=== PATIENT | female | born 1950 | race Caucasian/White ===

== ENCOUNTER 2018-05-06 16:01 | Outpatient (CLI) | payer MEDICARE ==
--- NOTE | 2018-05-06 19:37 | RAD ---
LUMBAR SPINE FOUR VIEWS INCLUDING FLEXION AND EXTENSION VIEWS: 05/06/2018 HISTORY: Lumbar spondylosis. The patient complains of numbness in the bilateral feet with low back pain. His tory of prior low back surgery. COMPARISON: None available. FINDINGS: Vascular calcifications are seen in the abdominal aorta. The AP dimensions of the calcified abdomina l aorta are increased, with evidence of aneurysmal dilatation of the abdominal aorta, measuring 3.6 c m. Post surgical changes of the lumbar spine are noted with bipedicular screws and posterior rods transf ixing the L2-L3, L3-L4, L4-L5, and L5-S1 levels. No hardware complication is seen. Laminectomy defe cts are seen extending from the L2-L3 level to the L5-S1 level. Bony lateral masses are seen, relate d to the fusion. No hardware complication is seen. The vertebral body heights are within normal sweeney its. There is trace anterolisthesis of L2 on L3. No fracture is identified. There are endplate deg enerative changes and loss of intervertebral disk height at the L1-L2 level. There is mild right con vex curvature of the lumbar spine. IMPRESSION: 1. Infrarenal abdominal aortic aneurysm. Further evaluation with abdominal ultrasound is recommende d. 2. Postsurgical changes of the lumbar spine, related to posterior fusion from the level of the L2 ve rtebral body to the S1 vertebral body. No hardware complication is seen. 3. Degenerative changes at the L1-L2 level, with loss of intervertebral disk height and endplate deg enerative changes noted. CODE T POS: LIZ
--- NOTE | 2018-05-06 19:55 | RAD ---
FIVE VIEWS CERVICAL SPINE INCLUDING FLEXION AND EXTENSION VIEWS: 05/06/18 HISTORY: Cervical spondylolisthesis. Patient complains of numbness and tingling of bilateral hands and fingers . FINDINGS: C1 to C7 is seen on the lateral projection. Cervicothoracic junction is obscured due to overlying str uctures, but there is questionable trace anterolisthesis of C7 on T1. There is trace anterolisthesis of C3 on C4 measuring 3 to 4 mm on flexion and less than 2 mm on extension and measures approximately 2.5 mm on neutral positioning. There are end plate degenerative changes at the C5-6 level with loss of intervertebral disc height an d posterior osteophyte formation present at this level. No obvious fracture is seen on this exam. Pre vertebral soft tissues are within normal limits. Multilevel facet degenerative changes are noted. Vas cular calcifications overlie the carotid artery bilaterally, greater on the right. IMPRESSION: 1. Anterolisthesis of C3 on C4 with mild abnormal transitional motion. 2. Questionable trace anterolisthesis of C7 on T1, but this level is mostly obscured, and this i s difficult to accurately develop based on this exam. 3. Multilevel facet degenerative changes in the cervical spine. POS: LIZ
== END 2018-05-06 16:02 | disposition home or self-care (01) ==
LOC: TBSIIMAG 16:01
PROVIDERS: ATTEND Neurological Surgery
DX: M47.26 Other spondylosis with radiculopathy, lumbar region (principal); M47.22 Other spondylosis with radiculopathy, cervical region; M43.12 Spondylolisthesis, cervical region; I71.4 Abdominal aortic aneurysm, without rupture; M51.16 Intervertebral disc disorders with radiculopathy, lumbar region; Z98.1 Arthrodesis status
CPT/HCPCS: 72040; 72110

== ENCOUNTER 2018-07-23 05:58 | Inpatient (IN) | payer MEDICARE ==
[2018-07-23] MEDS ORDERED: Fentanyl 100 MCG/2 ML VIAL ONE ×2 (07:05→10:31)
[2018-07-23] MEDS ORDERED: Midazolam HCl 2 mg/2 ml Vial ONE (07:05)
[2018-07-23] MEDS ORDERED: Heparin 10,000 UNITS/1 ML VIAL ONE (08:30)
[2018-07-23] MEDS ORDERED: Protamine Sulfate 50 MG/5 ML VIAL ONE (08:31)
[2018-07-23] MEDS ORDERED: Acetaminophen/Codeine 30-300mg Tablet PO PRN ×2 (08:51)
[2018-07-23] MEDS ORDERED: Nitroglycerin 0.4 MG TAB (25 Tab Bottle) SL PRN (08:51)
[2018-07-23] MEDS ORDERED: Sodium Chloride 0.9% 200 ML IV PRN (08:51)
[2018-07-23] MEDS ORDERED: Aspirin 81 mg Enteric Coated Tablet PO SCH (09:00)
[2018-07-23] MEDS ORDERED: diphenhydrAMINE 25 MG CAP PO PRN (09:00)
[2018-07-23] MEDS ORDERED: Ibuprofen 800 MG TAB PO PRN (09:01)
[2018-07-23] MEDS ORDERED: traZODone HCl 50 MG TAB PO PRN (09:04)
[2018-07-23] MEDS ORDERED: Iopamidol 370 76% 100 ML VIAL ONE (09:13)
[2018-07-23] MEDS ORDERED: Iopamidol 370 76% 50 ML VIAL FS ONE (09:13)
[2018-07-23] MEDS: Sodium Chloride 0.9% 1,000 ML IV SCH ×2 (13:03→17:58)
[2018-07-23] MEDS: HYDROcodone/Acetaminophen 10/325 mg Tablet PO PRN ×2 (13:03→20:10)
[2018-07-23 13:36] LABS: PTT 25.4 SEC (22.9-36.1); Prothrombin Time 13.2 SEC (12.0-14.7)
--- NOTE | 2018-07-23 13:47 | CON ---
DATE OF CONSULTATION: 07/23/2018 PRIMARY CARE PHYSICIAN: Dr. Oscar Devi. CHIEF COMPLAINT: Abnormal stress test. HISTORY OF PRESENT ILLNESS: The patient is a 68-year-old woman with a known history of coronary artery disease having had myocardial infarctions in 1997 and in 1998. She has done well since then with no chest pain or indigestion type symptoms similar to those of her heart attacks. She has not had any dyspnea on exertion or decreasing exercise tolerance, but she is having some upper extremity radicular symptoms and is going to undergo neck surgery. She went to Dr. Mcgovern for cardiac evaluation prior to undergoing surgery and a stress test was abnormal with both fixed and reversible defects along the inferior wall. Cardiac catheterization today demonstrated a left dominant system. A collateral from the nondominant right fills, what appears to represent a PDA with competitive flow in it distally. No obvious problems in the LAD, but a very high-grade lesion in the groove circumflex just beyond the large OM and involving the origin of that OM. LVEF is good by my estimation around 70%, but LVEDP was 24. PAST MEDICAL HISTORY: Significant for coronary artery disease. She has had a known occlusion of her PDA and extensive stenting of mid to distal LAD. MEDICATIONS: Her home medications are; 1. Adult aspirin a day. 2. Zocor 40 mg in the evening. 3. Lopressor 50 mg b.i.d. 4. Lisinopril 10/hydrochlorothiazide 12.5 mg once a day. 5. Protonix 40 mg a day. 6. Zoloft 200 mg a day. 7. Trazodone 50 mg at bedtime. 8. Flexeril 10 mg p.r.n. 9. Motrin 800 mg b.i.d. p.r.n. 10. Benadryl 25 mg at bedtime p.r.n. 11. [place] 10 one tablet every 12 hours p.r.n. ALLERGIES: SHE DENIES ANY MEDICAL ALLERGIES, BUT DESCRIBES AN INTOLERANCE TO CRESTOR. SOCIAL HISTORY: She is a long-term smoker, who has recently cut back to mostly using E-cigarettes, but occasionally smoking conventional cigarettes. FAMILY HISTORY: Significant for both of her parents having hypertension and the cause of unknown. REVIEW OF SYSTEMS: Positive for pain and numbness in both hands. It is negative for any eye, speech, facial, or extremity symptoms suggestive of TIAs. Negative for any shortness of breath. Negative for any chest pain. PHYSICAL EXAMINATION: GENERAL: She is 5 feet 2 inches and weighs 223 pounds by the hospital weight, she was [address] Mcgovern's office. Heart rate 67, blood pressure 123/75, room air O2 saturations are 98%, and temperature is 98.6. HEENT: She has no xanthelasma. NECK: No JVD. No carotid bruits. CHEST: Clear to auscultation. HEART: She has regular rate and rhythm. ABDOMEN: Obese, soft, and nontender. She has palpable radial and dorsalis pedis pulses bilaterally. She has no clubbing, cyanosis, or edema. She has no obvious varicosities. NEUROLOGIC: Grossly nonfocal. LABORATORY DATA: Laboratory exam shows a white count of 9.1, hemoglobin 13.1, hematocrit 39.2, and platelets 247,000. Electrolytes were normal. Glucose 93, BUN 28, and creatinine 1.30. LFTs were normal. Calcium 9.9, protein 7.7, albumin 4.1, triglycerides 163, cholesterol 183, LDL 110, and HDL 40. Her most recent chest x-ray in our system is about 4 years old. At that time, one could see calcifications and what appeared to represent breast implants. No obvious aortic knob calcification. Normal size heart and clear lung miramontes. Her cardiac catheterization is as above. Aortic pressure on pullback was 122/68 with a mean of 87. LV pressure was 137/22 with an EDP of 24. IMPRESSION AND PLAN: I discussed with the patient, issues related to basically 2-vessel disease and some vagaries associated with revascularization in anticipation of other procedures. Certainly, percutaneous intervention on this lesion would be difficult and could lead to catastrophic problems. If there are any complications related to it, we will plan on coronary artery bypass grafting and/or circumflex system. Job ID: [id number]
--- NOTE | 2018-07-23 14:58 | HP ---
PRIMARY CARE PROVIDER: Dr. Milo Nettles. HISTORY OF PRESENT ILLNESS: The patient having a routine cardiac cath for preop clearance. She had a history of coronary artery disease, was found to have critical lesions and is being scheduled for coronary artery bypass graft tomorrow. She had no chest pain. No dyspnea on exertion prior to this. PAST MEDICAL HISTORY: Pertinent for coronary artery disease with PCI x4, she had two in 1998 and two in 2008. She had an GA prior to the 1998. She has hypertension, elevated cholesterol, and depression. HOME MEDICATIONS: 1. Trazodone 50 mg a day. 2. Zocor 40 mg a day. 3. Zoloft 200 mg a day. 4. Protonix 40 mg a day. 5. Metoprolol 50 mg twice a day. 6. Lisinopril-hydrochlorothiazide 10-12.5 a day. 7. Ibuprofen 800 mg p.o. t.i.d. p.r.n. 8. Hydrocodone 10/325 one p.o. q.4 hours p.r.n. 9. Flexeril 10 mg at bedtime. 10. Aspirin 81 mg a day. 11. Benadryl 25 mg h.s. p.r.n. ALLERGIES: NONE. FAMILY HISTORY: Father is . Mother had hypertension. She has two sibs with hypertension. Father is with coronary artery disease. SOCIAL HISTORY: . Full code status. Daughter, Chasity Waters is next of kin. She is nontobacco smoking. She drinks an occasional alcoholic beverage. REVIEW OF SYSTEMS: GENERAL: No headaches, dizziness, fainting. EYES: No double vision, blurred vision, or flashing light. EAR, NOSE, AND THROAT: No ear pain or drainage. No nasal bleeding. No trouble swallowing. CARDIAC: No chest pain, orthopnea, or paroxysmal nocturnal dyspnea. RESPIRATION: No cough, wheezing, or asthma. GASTROINTESTINAL: She has problems with constipation secondary to pain medicines. She has no nausea, vomiting, abdominal pain, or diarrhea. GENITOURINARY: No hematuria or dysuria. MUSCULOSKELETAL: No swelling in her legs. No pain in her muscle. She does have low back pain radiating into her right hip and to her right leg. NEUROLOGIC: She has been told her neck is unstable and she needs a stabilization procedure, which is the reason for the clearance was for C-spine surgery. PSYCHIATRIC: She has history of mild depression on medications, doing well. SKIN: No bruising, bleeding, or rash. HEME/LYMPH: No tender or swollen lymph nodes in axilla, inguinal, or cervical area. PHYSICAL EXAMINATION: GENERAL: She is alert, pleasant, cooperative lady in no distress at this time. VITAL SIGNS: Temperature 98.6, pulse 67, respirations 16, room air sat 98, blood pressure 123/75. HEAD, EYES, EARS, NOSE, AND THROAT: Reveal pupils are equal, round, and reactive to light. Extraocular movements are intact. Tympanic membranes clear. Nose clear. Oral mucous membranes are wet. Dental hygiene is good. NECK: No jugular venous distention, adenopathy, or thyromegaly. CHEST: Clear to auscultation and percussion. HEART: Had a regular rate and rhythm. First and second heart sounds are clear. There are no murmurs or gallops. ABDOMEN: Soft. Bowel sounds are normal. There is no hepatosplenomegaly. No mass. No rebound. EXTREMITIES: Reveal no cyanosis, clubbing, or edema. PULSES: Carotid, radial, femoral, and dorsalis pedis pulses are intact. SKIN: Warm and dry without bruises or rash. HEME/LYMPH: Reveals no tender or swollen lymph nodes in the axilla, inguinal, or cervical area. NEUROLOGIC: Cranial nerves 2 through 12 are intact. Moves all extremities. DIAGNOSTIC DATA: Cardiac cath report 95% stenosis of proximal circ, 95% stenosis first obtuse marginal, 80% stenosis in distal circ, 50% stenosis in mid circ. EKG; sinus bradycardia, nonspecific ST-T abnormality, reviewed by me. LABORATORY DATA: The only laboratory available 07/18; CBC is normal. 07/18; comprehensive metabolic profile is normal except for a creatinine of 1.3 and a BUN of 28. ADMITTING DIAGNOSES: 1. Coronary artery disease with critical lesions requiring coronary artery bypass graft. 2. Hypertension. 3. Dyslipidemia. 4. Depression. PLAN: Agree with current management. Continue current medications. We will follow with you. Job ID: [id number]
--- NOTE | 2018-07-23 15:04 | RAD ---
PORTABLE CHEST 1 VIEW: Date: 07/23/18 Time: 1441 hours HISTORY: Preoperative evaluation for open heart surgery. FINDINGS: Comparison made with exam of 04/11/14. The heart size is normal. The lungs are expanded without focal areas of consolidation, pneumothorax, latrell pulmonary edema, or pleural effusions. Bilateral calcified breast prostheses are present. IMPRESSION: No radiographic evidence of acute cardiopulmonary process. POS: JAEH
[2018-07-23] MEDS: Metoprolol Tartrate 50 MG TAB PO SCH (20:10)
[2018-07-23] MEDS ORDERED: Pantoprazole 40 MG GRANULES PACKET PO SCH (21:00)
[2018-07-23] MEDS ORDERED: Cyclobenzaprine 10 MG TAB PO SCH (21:00)
[2018-07-23] MEDS ORDERED: Atorvastatin Calcium 40 MG TAB PO SCH (21:00)
[2018-07-24] MEDS: HYDROcodone/Acetaminophen 10/325 mg Tablet PO PRN (00:16)
[2018-07-24] MEDS: Sodium Chloride 0.9% 1,000 ML IV SCH ×2 (01:16→17:16)
[2018-07-24] MEDS: Metoprolol Tartrate 50 MG TAB PO SCH (07:13)
[2018-07-24] MEDS ORDERED: Lisinopril/Hydrochlorothiazide 10 mg/12.5 mg Tablet PO SCH (09:00)
[2018-07-24] MEDS ORDERED: Midazolam HCl 5 mg/5 ml Vial ONE (10:12)
[2018-07-24] MEDS ORDERED: Fentanyl 250 MCG/5 ML VIAL ONE (10:12)
[2018-07-24] MEDS ORDERED: Vecuronium 10 MG VIAL ONE ×2 (10:13→10:14)
[2018-07-24] MEDS ORDERED: Dexmedetomidine 200 MCG/2 ML VIAL ONE (10:13)
[2018-07-24] MEDS ORDERED: Potassium Chloride 60 MEQ/30 ML VIAL ONE (10:14)
[2018-07-24] MEDS ORDERED: Sodium Bicarb 50 MEQ/50 ML VIAL ONE (10:14)
[2018-07-24] MEDS ORDERED: Nitroglycerin 50 MG/250 ML BOT ONE (10:14)
[2018-07-24] MEDS ORDERED: Lidocaine 2% PF 100 mg/5 ml Syringe ONE (10:14)
[2018-07-24] MEDS ORDERED: PROPOFOL 200 MG/20 ML VIAL ONE (10:14)
[2018-07-24] MEDS ORDERED: Ondansetron PF 4 MG/2 ML Vial ONE (10:14)
[2018-07-24] MEDS ORDERED: Papaverine 60 MG/2 ML VIAL ONE (10:14)
[2018-07-24] MEDS ORDERED: Protamine Sulfate 250 MG/25 ML VIAL ONE (10:14)
[2018-07-24] MEDS ORDERED: Glycopyrrolate 0.2 MG/ML 5 ML SYRINGE ONE (10:14)
[2018-07-24] MEDS ORDERED: Heparin 30,000 units/30 ml VIAL ONE (10:14)
[2018-07-24] MEDS ORDERED: Thrombin 5000 UNITS/5 ML VIAL ONE (10:14)
[2018-07-24] MEDS ORDERED: Calcium Chloride 1 GM/10 ML Abboject SYRINGE ONE (10:14)
[2018-07-24] MEDS ORDERED: Cardioplegic Soln 1,000 ML BAG ONE (10:14)
[2018-07-24] MEDS ORDERED: Mannitol 12.5 GM/50 ML ONE (10:14)
[2018-07-24] MEDS ORDERED: Aminocaproic Acid 5 GM/20 ML VIAL ONE (10:14)
[2018-07-24] MEDS ORDERED: Magnesium 5 GM/10 ML VIAL ONE (10:14)
[2018-07-24] MEDS ORDERED: Albumin 5% 500 ML ONE (10:37)
[2018-07-24] MEDS ORDERED: Midazolam HCl 2 mg/2 ml Vial ONE (10:41)
[2018-07-24] MEDS ORDERED: Heparin 10,000 UNITS/1 ML VIAL 30,000 UNITS in Sodium Chloride 0.9% 1,000 ML FS SCH (11:00)
[2018-07-24] MEDS ORDERED: Communication Order-Pharmacy FS ONE (12:19)
[2018-07-24] MEDS ORDERED: Hetastarch 6% 500 ML 500 ML IVPB PRN (15:13)
[2018-07-24] MEDS ORDERED: Nitroglycerin 50 MG/250 ML BOT 250 ML IVPB PRN (15:13)
[2018-07-24] MEDS ORDERED: Mag-Al 1200 mg/1200 mg/30 ML UDCUP PO PRN (15:13)
[2018-07-24] MEDS ORDERED: Acetaminophen 325 MG TAB PO PRN (15:13)
[2018-07-24] MEDS ORDERED: Ondansetron PF 4 MG/2 ML Vial IVP PRN (15:13)
[2018-07-24] MEDS ORDERED: Fentanyl 100 MCG/2 ML VIAL SLOW IVP PRN (15:13)
[2018-07-24] MEDS ORDERED: Post-Op Insulin Drip Protocol IVPB ONE (15:13)
[2018-07-24] MEDS ORDERED: Guaifenesin DM 100-10/5 ML UDCUP PO PRN (15:13)
[2018-07-24] MEDS ORDERED: diphenhydrAMINE 25 MG CAP PO PRN (15:13)
[2018-07-24] MEDS ORDERED: Bisacodyl 5 MG TAB PO PRN (15:13)
[2018-07-24] MEDS ORDERED: Promethazine HCl 25 MG/ML VIAL IM PRN (15:13)
[2018-07-24] MEDS ORDERED: HYDROcodone/Acetaminophen 5/325 mg Tablet PO PRN (15:13)
[2018-07-24] MEDS ORDERED: hydrALAZINE 20 MG/ML VIAL SLOW IVP PRN (15:13)
[2018-07-24] MEDS ORDERED: Bisacodyl 10 MG SUPP PR PRN (15:13)
[2018-07-24] MEDS ORDERED: HUMULIN R 100 UNITS in Sodium Chloride 0.9% 100 ML IVPB SCH (16:06)
[2018-07-24] MEDS ORDERED: Dextrose 5% in Water 1,000 ML IV PRN (16:06)
[2018-07-24] MEDS ORDERED: Dextrose 50% Abboject 50 ML SYRINGE SLOW IVP PRN (16:06)
[2018-07-24 16:52] LABS: Actual Bicarbonate (HCO3a) 22.2 mEq/L (22-28); Base Excess (BEa) -5.5 mEq/L (-2.0 to +3.0); CO2 Tension 53.7 mmHg (35.0-45.0); Calcium, Ionized 1.23 mmol/L (1.12-1.30); Carboxyhemoglobin (COHb) 0.9 gm% (0.0-3.0); Hemoglobin (Hb) 11.6 g/dL (12.0-16.0); Potassium - ABG Lab 4.38 mmol/L (3.70-5.30)
--- NOTE | 2018-07-24 16:52 | RAD ---
Exam: Chest one view: HISTORY: Postop open heart COMPARISON: 07/23/2018 FINDINGS: Recent postop midline sternotomy with endotracheal tube, right central line, and chest tubes in place . Minimal bilateral vascular congestion and patchy parenchymal changes in the left base probably some subsegmental atelectasis. No pneumothorax. IMPRESSION: Postop recent coronary bypass changes. Continued short-term follow-up.
[2018-07-24 16:54] LABS: Mean Corpuscular HGB CONC 31.6 g/dL (32.0-36.0); Mean Corpuscular Hemoglobin 30.5 pg (27.0-31.0); Mean Corpuscular Volume 96.7 fL (78.0-98.0); Mean Platelet Volume 7.5 fL (7.4-10.4); Platelet Count 185 thou/uL (130-400); RBC Distribution Width 13.5 % (11.5-14.5); Red Blood Cell (RBC) Count 3.61 mill/uL (4.20-5.40)
[2018-07-24 16:59] LABS: INR-International Normal Ratio 1.2; PTT 24.9 SEC (22.9-36.1); Prothrombin Time 15.7 SEC (12.0-14.7)
[2018-07-24 17:09] LABS: Puncture Site ALINE; pH, Arterial 7.24 (7.35-7.45)
[2018-07-24 17:10] LABS: ALV-art Gradient 183.675 (0-20)
[2018-07-24 17:11] LABS: Potassium 4.2 mmol/L (3.5-5.1)
[2018-07-24] MEDS: Ketorolac Tromethamine 30 MG/ML VIAL IVP SCH ×2 (17:14→23:34)
[2018-07-24 17:15] LABS: Anion Gap 12 mmol/L (10-20); BUN (Urea Nitrogen) 14 mg/dL (9.8-20.1); Band 12 % (5-11); Calc. Creatinine Clearance 104 mL/min (70-130); Calcium 8.4 mg/dL (7.8-10.44); Carbon Dioxide 21 mmol/L (23-31); Chloride 111 mmol/L (98-107); Eosinophils 2 % (0-10); Estimated GFR-MDRD 67; Glucose 145 mg/dL (80-115); Lymphocytes 9 % (21-51); MDiff Complete? YES; Metamyelocyte 1 % (0-0); Monocytes 2 % (0-10); Neutrophil 73 % (42-75); Platelet Morphology Comment Appears Adequate; Potassium 4.3 mmol/L (3.5-5.1); RBC Morphology Normal; Reactive Lymphocytes 1 % (0-10); Sodium 140 mmol/L (136-145)
[2018-07-24] MEDS: Norepinephrine 8 MG/0.9% NS 250 ML IVPB PRN (17:17)
[2018-07-24] MEDS: Insulin Regular 300 UNITS/3 ML VIAL SC PRN ×2 (17:20→20:18)
[2018-07-24 17:51] LABS: Actual Bicarbonate (HCO3a) 20.6 mEq/L (22-28); Base Excess (BEa) -4.2 mEq/L (-2.0 to +3.0); CO2 Tension 36.6 mmHg (35.0-45.0); Calcium, Ionized 1.15 mmol/L (1.12-1.30); Carboxyhemoglobin (COHb) 0.6 gm% (0.0-3.0); Hemoglobin (Hb) 11.2 g/dL (12.0-16.0); O2 Tension (PaO2) 182.3 mmHg (> 80.0); Potassium - ABG Lab 4.13 mmol/L (3.70-5.30); pH, Arterial 7.37 (7.35-7.45)
[2018-07-24 18:00] LABS: Puncture Site ALINE
[2018-07-24] MEDS: Fentanyl 100 MCG/2 ML VIAL SLOW IVP PRN ×3 (18:44→23:33)
[2018-07-24 20:15] LABS: Actual Bicarbonate (HCO3a) 22.1 mEq/L (22-28); Base Excess (BEa) -3.6 mEq/L (-2.0 to +3.0); CO2 Tension 42.3 mmHg (35.0-45.0); Calcium, Ionized 1.16 mmol/L (1.12-1.30); Carboxyhemoglobin (COHb) 0.9 gm% (0.0-3.0); Hemoglobin (Hb) 10.4 g/dL (12.0-16.0); O2 Tension (PaO2) 107.4 mmHg (> 80.0); Potassium - ABG Lab 4.15 mmol/L (3.70-5.30); pH, Arterial 7.34 (7.35-7.45)
[2018-07-24 20:17] LABS: ALV-art Gradient 89.275 (0-20); Puncture Site ALINE
[2018-07-24] MEDS ORDERED: Cyclobenzaprine 10 MG TAB PO SCH (21:00)
[2018-07-24] MEDS: traZODone HCl 50 MG TAB PO SCH (21:54)
--- NOTE | 2018-07-24 21:57 | OP ---
DATE OF PROCEDURE: 07/24/2018 PROCEDURES PERFORMED: Coronary artery bypass grafting x2 with reverse greater saphenous vein graft from the aorta to the first obtuse marginal and free right internal mammary artery from the aorta to the second obtuse marginal. PREOPERATIVE DIAGNOSIS: Coronary artery disease. POSTOPERATIVE DIAGNOSIS: Coronary artery disease. PLATE SHEAR OPERATOR: Dr. Tomás Leung. ANESTHESIA: General endotracheal anesthesia. INDICATIONS: The patient is a 68-year-old woman with cervical spine disease, needing to undergo a surgical procedure for it. She has known coronary artery disease and screening. Stress testing was abnormal. Cardiac catheterization demonstrated minimal luminal irregularity associated with the previously stented LAD, but a complex lesion in the circumflex proper involving the first obtuse marginal. The lesion in the circumflex proper was a subtotal lesion. The circumflex was a dominant system. She is now taken to the operating room for surgical revascularization. FINDINGS: Pump time 76 minutes. Cross-clamp time 20 minutes. Good quality GILES and saphenous vein. The OM1 was about 2 or perhaps 2.5 mm vessel. The OM2 was 1.5 to 2 mm. The circumflex PDA though long was only about a 1 mm vessel or smaller and was not grafted. The pericardium was closed. NARRATIVE REPORT: After informed consent was obtained, the patient was taken to the operating room, placed in supine position on the operating table. After the induction of general endotracheal anesthesia, utilizing a GlideScope to avoid extension of the neck. The patient's greater saphenous vein in her left lower extremity was ultrasonographically mapped. Her right upper chest was then prepped and draped in sterile fashion and she was placed in Trendelenburg. A triple-lumen central line kit was used to place a right subclavian central line by the Seldinger technique. All 3 ports easily aspirated and flushed. The line was secured. The patient's torso, groins, and lower extremities were prepped and draped in sterile fashion avoiding the use of the shoulder roll. Saphenous vein was harvested from the proximal left thigh and was prepared for use as a graft. The harvest site was closed in layers of subcutaneous and subcuticular Vicryl. A median sternotomy was performed. The right internal mammary artery was harvested as a skeletonized free graft from the level of the xiphoid to where it dove deep to the innominate vein through an extrapleural exposure at the proximal dissection, however, exposure led to a wide violation of the right pleura. After ligating and dividing the mammary proximally and distally at either end, a 36-[place]ian chest tube was placed into the right pleural space and the pleural rent was repaired with 3-0 Vicryl. The distal end of the mammary was cannulated with a small bore needle and the mammary was distended with papaverine solution to relieve spasm and to evaluate for adequacy of control side branches. The patient was heparinized. The mammary bed was inspected for hemostasis. The pericardium was opened and marsupialized. The aorta was palpated and was soft. Some adhesions within the pericardium to the ascending aorta were lysed sharply. A double concentric pursestring of 2-0 Ethibond was placed in the ascending aorta just within the pericardial reflection and a single pursestring was placed in the right atrial appendage. Aortic and venous cannulae were inserted and secured by the pursestrings. Cardiopulmonary bypass was instituted and the patient was systemically cooled. The plane between the aorta and the pulmonary artery was developed. An aortic cross-clamp was applied and cardioplegia was administered through an aortic root needle. When arrest have been achieved, attention was turned to the OM1. It was opened with a [place] blade and Shashank scissors. Reverse greater saphenous vein was anastomosed to it with running 6-0 Prolene suture and the anastomosis was tested by flushing cold cardioplegia down the graft. Attention was then turned to the 2nd obtuse marginal. It was opened in a similar fashion. The right mammary was reversed and anastomosed there end-to-side with running 7-0 Prolene and tested by flushing cold cardioplegia down it. The aortic cross-clamp was replaced with the partial occluding clamp and a generous aortotomy was made in the ascending aorta with a scalpel and punch incorporating the root needle site. The OM1 graft was generously spatulated after trimming it to length and it was then anastomosed to that aortotomy end-to-side with running 6-0 Prolene suture. Venotomy was made in the conn of that proximal anastomosis using 11 blade scalpel and Shashank scissors. The right mammary was trimmed to length and generously spatulated and anastomosed onto the conn of the OM1 vein graft proximal with running 7-0 Prolene. The mammary was allowed to back bleed to flush it of air and with it occluded at the anastomosis, the partial occluding clamp was removed. The vein graft was de-aired and the bulldog removed from it. The anastomoses were inspected for hemostasis. The posterior pericardial drain was brought out through a separate incision and secured with suture. Right atrial and right ventricular temporary epicardial pacing wires were placed with the use of low dose Levophed and pacing. The patient was from cardiopulmonary bypass without difficulty. The aortic and venous cannulae were removed and the pursestring secured. Protamine was administered. When hemostasis was adequate, an anterior mediastinal drain was placed. The pericardium was easily closed over it with running Vicryl. Cut surfaces of the sternum were treated with vancomycin paste and platelet rich GPS. The sternum was then reapproximated with #7 stainless steel wires. The fascia was closed over the wires with heavy Vicryl after irrigating the soft tissues and applying platelet poor GPS. Subcutaneous tissue was reapproximated with 2-0 Vicryl. The skin was closed with Vicryl subcuticular suture. The wounds were dressed. The patient was then taken to the intensive care unit in stable condition. Job ID: [id number]
[2018-07-24] MEDS: Pantoprazole 40 MG GRANULES PACKET PO SCH (22:02)
[2018-07-24] MEDS: Atorvastatin Calcium 20 MG TAB PO SCH (23:35)
[2018-07-24] MEDS: Docusate 100 MG CAP PO SCH (23:35)
[2018-07-25] MEDS: HYDROcodone/Acetaminophen 5/325 mg Tablet PO PRN ×4 (01:51→15:59)
[2018-07-25] MEDS: Fentanyl 100 MCG/2 ML VIAL SLOW IVP PRN (03:12)
[2018-07-25 04:29] LABS: #Monocytes 0.7 thou/uL (0.11-0.59); #Neutrophils 13.2 thou/uL (1.40-6.50); %Basophils 0.1 % (0.0-1.0); %Eosinophils 0.1 % (0.0-10.0); %Lymphocytes 6.4 % (21.0-51.0); %Monocytes 4.8 % (0.0-10.0); %Neutrophils 88.6 % (42.0-75.0); Hemoglobin 9.3 g/dL (12.0-16.0); Mean Corpuscular HGB CONC 32.8 g/dL (32.0-36.0); Mean Corpuscular Hemoglobin 31.7 pg (27.0-31.0); Mean Corpuscular Volume 96.8 fL (78.0-98.0); Mean Platelet Volume 8.2 fL (7.4-10.4); Platelet Count 143 thou/uL (130-400); RBC Distribution Width 13.5 % (11.5-14.5); Red Blood Cell (RBC) Count 2.92 mill/uL (4.20-5.40); White Blood Cell (WBC) Count 14.9 thou/uL (4.8-10.8)
[2018-07-25] MEDS: Ketorolac Tromethamine 30 MG/ML VIAL IVP SCH ×2 (04:33→11:16)
[2018-07-25 04:40] LABS: Anion Gap 10 mmol/L (10-20); BUN (Urea Nitrogen) 18 mg/dL (9.8-20.1); Calc. Creatinine Clearance 96 mL/min (70-130); Calcium 8.4 mg/dL (7.8-10.44); Carbon Dioxide 25 mmol/L (23-31); Chloride 111 mmol/L (98-107); Estimated GFR-MDRD 61; Glucose 126 mg/dL (80-115); Potassium 4.1 mmol/L (3.5-5.1); Sodium 142 mmol/L (136-145)
[2018-07-25] MEDS: Sodium Chloride 0.9% 1,000 ML IV SCH ×2 (05:02→17:16)
[2018-07-25] MEDS: Insulin Regular 300 UNITS/3 ML VIAL SC PRN ×2 (08:16→11:49)
[2018-07-25] MEDS: Docusate 100 MG CAP PO SCH ×2 (08:58→21:47)
[2018-07-25] MEDS: Aspirin 81 mg Enteric Coated Tablet PO SCH (08:58)
[2018-07-25] MEDS ORDERED: Aspirin Chewable 81 MG TAB PO SCH (09:00)
--- NOTE | 2018-07-25 09:13 | RAD ---
PORTABLE CHEST: HISTORY: Postop open heart surgery. COMPARISON: Prior day's exam. FINDINGS: Heart size is enlarged. Postop sternotomy changes are seen. Right chest tube and right subclavian l ine are unchanged. Slightly increased vascular engorgement is present, as compared to the prior exam ination. IMPRESSION: 1. Slightly more prominent perihilar markings, suggesting some increased vascular engorgement. 2. Endotracheal tube has been removed. POS: TPC
[2018-07-25] MEDS: Diazepam 5 MG TAB PO PRN ×3 (11:16→23:12)
[2018-07-25] MEDS ORDERED: Furosemide 40 MG/4 ML VIAL SLOW IVP SCH (12:00)
[2018-07-25] MEDS: Cyclobenzaprine 10 MG TAB PO SCH ×3 (12:17→23:21)
--- NOTE | 2018-07-25 17:38 | PRG ---
DATE OF SERVICE: 07/25/2018 SUBJECTIVE: The patient is reporting she is having some spasms in her trapezius area. She reports that she has a history of significant cervical spinal disease and was actually planning on getting surgery there prior to this cardiac issue coming up. She typically takes Flexeril at home typically at bedtime that she needs more of it here. She also requests some topical NSAIDs, which she does not actually use at home, that she will rub it on her sister who does use it sometimes, and it makes her hands feel better when she does just by the incidental contact. PHYSICAL EXAMINATION: VITAL SIGNS: Temperature 97.9, pulse 108, respirations 18 to 26, and O2 saturations 97% on room air. GENERAL APPEARANCE: Age-appropriate female, in no distress. She appears to be slightly uncomfortable, but awake, alert, and conversant. HEART: Regular rate and rhythm without murmurs, gallops, or rubs. The chest drains are still in place. LUNGS: Clear bilaterally. ABDOMEN: Soft, nontender, and nondistended. Positive bowel sounds. No masses. No organomegaly. EXTREMITIES: Warm and dry with no cyanosis, clubbing, or edema. NEUROLOGIC: The patient is grossly intact, moving all extremities. LABORATORY DATA: White count 14.9, hemoglobin 9.3, platelets 143. Chemistries, normal. Glucose 126 to 164. Chest x-ray shows slightly more prominent perihilar markings, suggesting some increased vascular engorgement. IMPRESSION AND PLAN: 1. Postoperative heart catheterization, per CV Surgery. Overall, seems to be doing well. 2. Musculoskeletal pain syndrome. We will double check to make sure we increased her Flexeril to be available to her throughout the day as well, she is having more problems and that she is not able to get up and move around as much as she typically would. 3. Coronary artery disease. Continue with aspirin and statin. 4. Hypertension, stable. Job ID: [id number]
[2018-07-25] MEDS: Pantoprazole 40 MG GRANULES PACKET PO SCH (21:47)
[2018-07-25] MEDS: traZODone HCl 50 MG TAB PO SCH (21:47)
[2018-07-25] MEDS: Atorvastatin Calcium 20 MG TAB PO SCH (21:47)
[2018-07-26] MEDS: Cyclobenzaprine 10 MG TAB PO SCH ×4 (00:35→17:09)
[2018-07-26] MEDS: Norepinephrine 8 MG/0.9% NS 250 ML IVPB PRN (00:36)
[2018-07-26] MEDS: HYDROcodone/Acetaminophen 5/325 mg Tablet PO PRN ×3 (01:47→15:53)
[2018-07-26 05:01] LABS: #Eosinphils 0.1 thou/uL (0.0-0.7); #Lymphocytes 1.2 thou/uL (1.20-3.40); #Monocytes 0.7 thou/uL (0.11-0.59); #Neutrophils 12.3 thou/uL (1.40-6.50); %Basophils 0.2 % (0.0-1.0); %Eosinophils 0.4 % (0.0-10.0); %Lymphocytes 8.6 % (21.0-51.0); %Monocytes 4.8 % (0.0-10.0); %Neutrophils 86.1 % (42.0-75.0); Hemoglobin 8.2 g/dL (12.0-16.0); Mean Corpuscular HGB CONC 33.2 g/dL (32.0-36.0); Mean Corpuscular Hemoglobin 31.4 pg (27.0-31.0); Mean Corpuscular Volume 94.8 fL (78.0-98.0); Mean Platelet Volume 7.4 fL (7.4-10.4); Platelet Count 137 thou/uL (130-400); RBC Distribution Width 13.5 % (11.5-14.5); White Blood Cell (WBC) Count 14.3 thou/uL (4.8-10.8)
[2018-07-26 05:14] LABS: Anion Gap 10 mmol/L (10-20); BUN (Urea Nitrogen) 19 mg/dL (9.8-20.1); Calc. Creatinine Clearance 103 mL/min (70-130); Calcium 8.6 mg/dL (7.8-10.44); Carbon Dioxide 25 mmol/L (23-31); Chloride 107 mmol/L (98-107); Estimated GFR-MDRD 66; Glucose 131 mg/dL (80-115); Potassium 3.7 mmol/L (3.5-5.1); Sodium 138 mmol/L (136-145)
[2018-07-26] MEDS: Diazepam 5 MG TAB PO PRN (05:26)
[2018-07-26] MEDS: Potassium Chloride 20 MEQ/100 ML PREMIX BAG IVPB PRN (06:58)
[2018-07-26] MEDS: Docusate 100 MG CAP PO SCH ×2 (09:53→22:22)
[2018-07-26] MEDS: Aspirin 81 mg Enteric Coated Tablet PO SCH (09:53)
--- NOTE | 2018-07-26 10:08 | RAD ---
EXAM: CHEST ONE VIEW HISTORY: Post open heart surgery. COMPARISON: 07/25/2018 FINDINGS: Cardiac silhouette again appears enlarged. Pulmonary vasculature is mildly increased. There is mild i ncrease in perihilar interstitial densities. No definite pleural effusion is appreciated. Calcified breast prostheses overlie the lower chest. Right-sided thoracostomy tube and right subclavian central venous catheters remain in place. No pneumothorax is visualized. Thoracic aorta is ectatic but similar to prior exam. The chest is not significantly changed from prior study. IMPRESSION: Overall stable chest with right subclavian central venous catheter and right-sided thoracostomy tubes remaining in place. There is again mild prominence of the perihilar interstitial densities which may be minimally improved from prior study.
[2018-07-26] MEDS: Insulin Regular 300 UNITS/3 ML VIAL SC PRN (10:42)
--- NOTE | 2018-07-26 15:45 | PRG ---
DATE OF SERVICE: 07/26/2018 SUBJECTIVE: The patient reports that overall, her back pain and spasms are giving her more problem than anything else. She still has some discomfort in the chest area if she takes a deep breath. She is having trouble taking a deep breath, getting up in a chair as requested because of the spasms in her back. She reports that typically at home, she gets up and around and can reposition make those better, but that is just a little bit harder right now. OBJECTIVE: VITAL SIGNS: Temperature 98.6, pulse 120, respirations 23, O2 saturation 96% on room air, blood pressure is 110/87. GENERAL APPEARANCE: Age-appropriate female, slightly obese. No distress. Awake, alert, oriented, pleasant, and cooperative. HEART: Regular rate and rhythm without murmurs, gallops, or rubs. LUNGS: Clear to auscultation bilaterally with good chest wall expansion and air exchange. ABDOMEN: Soft, nontender, and nondistended. Positive bowel sounds. She still has the mediastinal drains in place. EXTREMITIES: No edema. LABORATORY DATA: White count 14.3, hemoglobin 8.2. Chemistries normal. Blood sugars 116 to 134. Chest x-ray: Stable chest with right subclavian central line, right thoracostomy tubes. IMPRESSION AND PLAN: 1. Postop heart catheterization for CV surgery, overall doing fairly well. 2. Probable slight volume overload, CV Surgery with some gentle diuresis. 3. Musculoskeletal pain syndrome with spasms in her back. She is on expanded dose of Flexeril. 4. Coronary artery disease. Continue aspirin and statin. 5. Hypertension, stable. 6. Tachycardia. Cardiology following, Dr. Mcgovern ordered, EKG today shows looks like a bigeminal rhythm, looks like she typically takes metformin at home, but is not on that now. She has been on Levophed which is likely exacerbating that as well. Job ID: [id number]
[2018-07-26] MEDS: Sodium Chloride 0.9% 1,000 ML IV SCH (18:44)
[2018-07-26] MEDS ORDERED: Atorvastatin Calcium 40 MG TAB PO SCH (21:00)
[2018-07-26] MEDS: Pantoprazole 40 MG GRANULES PACKET PO SCH (22:22)
[2018-07-26] MEDS: traZODone HCl 50 MG TAB PO SCH (22:22)
[2018-07-27] MEDS: Cyclobenzaprine 10 MG TAB PO SCH ×4 (02:05→19:10)
[2018-07-27 04:41] LABS: Anion Gap 10 mmol/L (10-20); BUN (Urea Nitrogen) 17 mg/dL (9.8-20.1); Calc. Creatinine Clearance 118 mL/min (70-130); Calcium 8.8 mg/dL (7.8-10.44); Carbon Dioxide 23 mmol/L (23-31); Chloride 106 mmol/L (98-107); Estimated GFR-MDRD 77; Glucose 130 mg/dL (80-115); Potassium 3.8 mmol/L (3.5-5.1); Sodium 135 mmol/L (136-145)
[2018-07-27 04:46] LABS: #Eosinphils 0.1 thou/uL (0.0-0.7); #Lymphocytes 0.9 thou/uL (1.20-3.40); #Monocytes 0.5 thou/uL (0.11-0.59); #Neutrophils 8.4 thou/uL (1.40-6.50); %Basophils 0.2 % (0.0-1.0); %Eosinophils 0.6 % (0.0-10.0); %Lymphocytes 8.8 % (21.0-51.0); %Monocytes 5.3 % (0.0-10.0); %Neutrophils 85.1 % (42.0-75.0); Mean Corpuscular HGB CONC 33.3 g/dL (32.0-36.0); Mean Corpuscular Hemoglobin 31.9 pg (27.0-31.0); Mean Corpuscular Volume 95.8 fL (78.0-98.0); Mean Platelet Volume 7.7 fL (7.4-10.4); Platelet Count 119 thou/uL (130-400); Platelet Morphology Comment Appears Decreased; RBC Distribution Width 13.5 % (11.5-14.5); RBC Morphology Normal; White Blood Cell (WBC) Count 9.8 thou/uL (4.8-10.8)
[2018-07-27] MEDS: Potassium Chloride 20 MEQ/100 ML PREMIX BAG IVPB PRN (06:32)
--- NOTE | 2018-07-27 09:41 | RAD ---
FRONTAL VIEW CHEST: INDICATION: ICU patient, heart surgery, followup. COMPARISON: Previous day. FINDINGS: Supportive lines and tubes are stable. There remains prominence of the cardiomediastinal silhouette and pulmonary vasculature. Retrocardiac left lower lobe opacity and patchy right basilar density are present. IMPRESSION: Grossly stable postoperative chest. POS: BENITA
[2018-07-27] MEDS: HYDROcodone/Acetaminophen 5/325 mg Tablet PO PRN ×2 (10:03→16:17)
[2018-07-27] MEDS: Aspirin 81 mg Enteric Coated Tablet PO SCH (10:04)
[2018-07-27] MEDS: Docusate 100 MG CAP PO SCH ×2 (10:04→22:09)
[2018-07-27] MEDS: Insulin Regular 300 UNITS/3 ML VIAL SC PRN (10:56)
--- NOTE | 2018-07-27 15:56 | PDOC.PN ---
- Subjective Encounter Start Date: 07/27/18 Encounter Start Time: 16:01 Subjective: Pt is seen and examined S/p CABG, POD #3 - Objective Vital Signs & Weight: Vital Signs (12 hours) Temp Pulse Resp BP Pulse Ox 07/27/18 12:00 98.4 F 07/27/18 08:45 98.0 F 126 H 24 H 130/90 95 07/27/18 08:00 95 07/27/18 07:00 98.0 F 07/27/18 06:21 93 L 07/27/18 06:14 98.3 F 122 H 20 117/82 93 L 07/27/18 05:00 98.7 F Weight Weight 231 lb 11.293 oz Most Recent Monitor Data Heart Rate from ECG 119 NIBP 136/93 NIBP BP-Mean 107 Respiration from ECG 22 SpO2 92 I&O: 07/26/18 07/27/18 07/28/18 06:59 06:59 06:59 Intake Total 1032 1153.8 1428 Output Total 2175 1685 555 Balance -1143 -531.2 873 Result Diagrams: 07/27/18 04:14 07/27/18 04:14 Additional Labs: Accuchecks 07/27/18 07/26/18 07/26/18 10:57 22:30 17:56 POC Glucose 134 H 130 H 120 H 07/26/18 16:00 POC Glucose 101 Phys Exam - Physical Examination HEENT: PERRLA, sclera anicteric Neck: no nodes, no JVD, supple Respiratory: no wheezing, no rales Chest Tube inplace. Chest wall Midline dressing Cardiovascular: RRR, no significant murmur, no rub Gastrointestinal: soft, non-tender, no distention Musculoskeletal: no edema, pulses present Neurological: non-focal, normal sensation Lymphatic: no nodes Dx/Plan - Plan CAD S/p CABG continue Post op Care -: Aspirin, Lopressor, Off Pressor support * . Review of Systems - Review of Systems ENT: negative: Ear Pain, Ear Discharge, Nose Pain, Nose Discharge, Nose Congestion, Mouth Pain, Mouth Swelling, Throat Pain, Throat Swelling, Other Respiratory: Cough, Shortness of Breath Cardiovascular: chest pain Gastrointestinal: negative: Nausea, Vomiting, Abdominal Pain, Diarrhea, Constipation, Melena, Hematochezia, Other Genitourinary: negative: Dysuria, Frequency, Incontinence, Hematuria, Retention , Other Musculoskeletal: negative: Neck Pain, Shoulder Pain, Arm Pain, Back Pain, Hand Pain, Leg Pain, Foot Pain, Other Skin: negative: Rash, Lesions, Amaury, Bruising, Other - Medications/Allergies Allergies/Adverse Reactions: Allergies Allergy/AdvReac Type Severity Reaction Status Date / Time No Known Allergies Allergy Unverified 07/18/18 13:13 Medications: Current Medications Acetaminophen (Tylenol) 650 mg PO Q6H PRN PRN Reason: Headache/Fever Or Mild Pain Hydrocodone Bitart/Acetaminophen ([place] 5/325) 1 tab PO Q4H PRN PRN Reason: Moderate Pain (4-6) Hydrocodone Bitart/Acetaminophen ([place] 5/325) 2 tab PO Q4H PRN PRN Reason: Severe Pain (7-10) Last Admin: 07/27/18 10:03 Dose: 2 tab Al Hydroxide/Mg Hydroxide (Maalox) 30 ml PO Q4H PRN PRN Reason: Indigestion Aspirin (Ecotrin) 81 mg PO DAILY [facility] Last Admin: 07/27/18 10:04 Dose: 81 mg Atorvastatin Calcium (Lipitor) 80 mg PO HS [place] Bisacodyl (Dulcolax) 10 mg PO Q12H PRN PRN Reason: Constipation Last Admin: 07/26/18 15:54 Dose: 10 mg Bisacodyl (Dulcolax) 10 mg [place] Q12H PRN PRN Reason: Constipation Cyclobenzaprine HCl (Flexeril) 10 mg PO Q6HR [facility] Last Admin: 07/27/18 13:07 Dose: 10 mg Dextrose/Water (Dextrose 50%) 25 gm SLOW IVP PRN PRN PRN Reason: PER HYPOGLYCEMIC PROTOCOL Diazepam (Valium) 5 mg PO Q6H PRN PRN Reason: Muscle Spasm Last Admin: 07/26/18 05:26 Dose: 5 mg Diphenhydramine HCl (Benadryl) 25 mg PO HS PRN PRN Reason: Allergies Docusate Sodium (Colace) 100 mg PO BID [facility] Last Admin: 07/27/18 10:04 Dose: 100 mg Glucagon (Glucagon) 1 mg SC PRN PRN PRN Reason: PER HYPOGLYCEMIC PROTOCOL Guaifenesin/Dextromethorphan (Robitussin Dm) 15 ml PO Q4H PRN PRN Reason: Cough Last Admin: 07/27/18 02:23 Dose: 15 ml Hydralazine HCl (Apresoline) 10 mg SLOW IVP Q6H PRN PRN Reason: To Maintain SBP< 140mmHG Norepinephrine Bitartrate (Levophed) 250 mls @ 0 mls/hr IVPB PRN PRN; Protocol PRN Reason: To maintain SBP > 90 mmHG Last Admin: 07/26/18 00:36 Dose: 250 mls Dextrose/Water (D5w) 1,000 mls @ 0 mls/hr IV INF PRN PRN Reason: PRN HYPOGLYCEMIC PROTOCOL Insulin Human Regular (Humulin R) 0 units SC Q4H PRN; Protocol PRN Reason: POST OP SLIDING SCALE Last Admin: 07/27/18 10:56 Dose: 2 unit Morphine Sulfate (Morphine) 2 mg SLOW IVP Q15MIN PRN PRN Reason: Severe Pain (7-10) Ondansetron HCl (Zofran) 4 mg IVP Q6H PRN PRN Reason: Nausea/Vomiting Pantoprazole Sodium (Protonix) 40 mg PO HS [facility] Last Admin: 07/26/18 22:22 Dose: 40 mg Potassium Chloride (Kcl) 20 meq IVPB PRN PRN PRN Reason: K level </= 4.0 Last Admin: 07/27/18 06:32 Dose: 20 meq Sertraline HCl (Zoloft) 200 mg PO DAILY [facility] Last Admin: 07/27/18 10:04 Dose: 200 mg Sodium Chloride (Flush - Normal Saline) 10 ml IVF Q12HR [facility] Last Admin: 07/27/18 10:04 Dose: 10 ml Trazodone HCl (Desyrel) 50 mg PO HS [facility] Last Admin: 07/26/18 22:22 Dose: 50 mg
[2018-07-27] MEDS: Pantoprazole 40 MG GRANULES PACKET PO SCH (22:09)
[2018-07-27] MEDS: Atorvastatin Calcium 40 MG TAB PO SCH (22:10)
[2018-07-27] MEDS: traZODone HCl 50 MG TAB PO SCH (22:10)
[2018-07-27] MEDS: Diazepam 5 MG TAB PO PRN (22:13)
[2018-07-28] MEDS: Cyclobenzaprine 10 MG TAB PO SCH ×4 (00:54→17:59)
[2018-07-28 04:32] LABS: #Eosinphils 0.2 thou/uL (0.0-0.7); #Lymphocytes 1.3 thou/uL (1.20-3.40); #Monocytes 0.9 thou/uL (0.11-0.59); #Neutrophils 9.9 thou/uL (1.40-6.50); %Basophils 0.3 % (0.0-1.0); %Eosinophils 1.7 % (0.0-10.0); %Lymphocytes 10.2 % (21.0-51.0); %Monocytes 7.4 % (0.0-10.0); %Neutrophils 80.4 % (42.0-75.0); Mean Corpuscular HGB CONC 33.2 g/dL (32.0-36.0); Mean Corpuscular Hemoglobin 31.1 pg (27.0-31.0); Mean Corpuscular Volume 93.7 fL (78.0-98.0); Mean Platelet Volume 7.4 fL (7.4-10.4); Platelet Count 185 thou/uL (130-400); RBC Distribution Width 14.4 % (11.5-14.5); Red Blood Cell (RBC) Count 1.92 mill/uL (4.20-5.40); White Blood Cell (WBC) Count 12.3 thou/uL (4.8-10.8)
[2018-07-28 05:17] LABS: Anion Gap 11 mmol/L (10-20); BUN (Urea Nitrogen) 19 mg/dL (9.8-20.1); Calc. Creatinine Clearance 119 mL/min (70-130); Carbon Dioxide 24 mmol/L (23-31); Chloride 105 mmol/L (98-107); Estimated GFR-MDRD 83; Glucose 110 mg/dL (80-115); Potassium 3.8 mmol/L (3.5-5.1); Sodium 136 mmol/L (136-145)
[2018-07-28] MEDS: HYDROcodone/Acetaminophen 5/325 mg Tablet PO PRN ×2 (08:37→15:11)
[2018-07-28] MEDS: Potassium Chloride 20 MEQ/100 ML PREMIX BAG IVPB PRN (08:38)
[2018-07-28] MEDS: Docusate 100 MG CAP PO SCH ×2 (08:38→20:42)
[2018-07-28] MEDS: Aspirin 81 mg Enteric Coated Tablet PO SCH (08:38)
[2018-07-28] MEDS: Diazepam 5 MG TAB PO PRN ×2 (08:58→20:47)
[2018-07-28] MEDS: Insulin Regular 300 UNITS/3 ML VIAL SC PRN (12:00)
[2018-07-28] MEDS ORDERED: Chloraseptic Spray 180 ml Bottle PO PRN (13:14)
[2018-07-28] MEDS ORDERED: Metoprolol Tartrate 25 MG TAB PO SCH (13:30)
[2018-07-28] MEDS: Lidocaine 5% Patch TD SCH (13:48)
[2018-07-28 14:33] LABS: Hemoglobin 10.4 g/dL (12.0-16.0)
[2018-07-28 15:48] LABS: Actual Bicarbonate (HCO3a) 22.3 mEq/L (22-28); Analyzer IN Cardio OR; Base Excess (BEa) -1.8 mEq/L (-2.0 to +3.0); CO2 Tension 35.6 mmHg (35.0-45.0); Calcium, Ionized 1.12 mmol/L (1.12-1.30); Carboxyhemoglobin (COHb) 0.3 gm% (0.0-3.0); Hemoglobin (Hb) 10.9 g/dL (12.0-16.0); O2 Tension (PaO2) 322.9 mmHg (> 80.0); Potassium - ABG Lab 3.95 mmol/L (3.70-5.30); pH, Arterial 7.42 (7.35-7.45)
[2018-07-28 15:49] LABS: Actual Bicarbonate (HCO3a) 23.5 mEq/L (22-28); Analyzer IN Cardio OR; Base Excess (BEa) -3.4 mEq/L (-2.0 to +3.0); CO2 Tension 52.6 mmHg (35.0-45.0); Calcium, Ionized 1.02 mmol/L (1.12-1.30); Carboxyhemoglobin (COHb) 0.7 gm% (0.0-3.0); Hemoglobin (Hb) 7.8 g/dL (12.0-16.0); Potassium - ABG Lab 4.77 mmol/L (3.70-5.30); pH, Arterial 7.27 (7.35-7.45)
[2018-07-28 15:49] LABS: Actual Bicarbonate (HCO3a) 20.5 mEq/L (22-28); Analyzer IN Cardio OR; Base Excess (BEa) -4.6 mEq/L (-2.0 to +3.0); CO2 Tension 37.8 mmHg (35.0-45.0); Calcium, Ionized 1.09 mmol/L (1.12-1.30); Carboxyhemoglobin (COHb) 0.4 gm% (0.0-3.0); Hemoglobin (Hb) 10.3 g/dL (12.0-16.0); O2 Tension (PaO2) 377.7 mmHg (> 80.0); Potassium - ABG Lab 4.11 mmol/L (3.70-5.30); pH, Arterial 7.35 (7.35-7.45)
[2018-07-28 15:50] LABS: Analyzer IN Cardio OR; Base Excess (BEa) -0.8 mEq/L (-2.0 to +3.0); CO2 Tension 55.4 mmHg (35.0-45.0); Calcium, Ionized 1.07 mmol/L (1.12-1.30); Carboxyhemoglobin (COHb) 0.7 gm% (0.0-3.0); Hemoglobin (Hb) 8.2 g/dL (12.0-16.0); O2 Tension (PaO2) 466.1 mmHg (> 80.0); Potassium - ABG Lab 4.81 mmol/L (3.70-5.30); pH, Arterial 7.29 (7.35-7.45)
[2018-07-28 15:51] LABS: Puncture Site ALINE
[2018-07-28 15:51] LABS: Actual Bicarbonate (HCO3a) 21.9 mEq/L (22-28); Analyzer IN Cardio OR; Base Excess (BEa) -3.8 mEq/L (-2.0 to +3.0); CO2 Tension 42.5 mmHg (35.0-45.0); Calcium, Ionized 1.21 mmol/L (1.12-1.30); Hemoglobin (Hb) 9.9 g/dL (12.0-16.0); O2 Tension (PaO2) 320.7 mmHg (> 80.0); Potassium - ABG Lab 4.33 mmol/L (3.70-5.30); pH, Arterial 7.33 (7.35-7.45)
[2018-07-28 15:52] LABS: Puncture Site ALINE
[2018-07-28 15:52] LABS: Puncture Site ALINE
[2018-07-28 15:52] LABS: Puncture Site ALINE
[2018-07-28 15:53] LABS: Puncture Site ALINE
--- NOTE | 2018-07-28 16:52 | CON ---
DATE OF CONSULTATION: 07/28/2018 SERVICE: Pulmonary Medicine. REASON FOR CONSULTATION: ICU patient. HISTORY OF PRESENT ILLNESS: The patient is a 68-year-old white female, who came in for a preop evaluation to Cardiology. During that process, she was identified to have critical multivessel coronary artery disease and was subsequently referred for a slightly urgent coronary artery bypass graft surgery. She is currently postop day #4 from this event. She has significant shortness of breath, particularly with exertion, cough, bring up a little bit of clear sputum, pleuritic chest discomfort with taking deep breaths, a little bit of nausea without vomiting, and no diarrhea. She has not had any bowel movements since the operation, but has been passing flatus. There has specifically been no fevers. Over the last 3 days, she is becoming increasingly tachycardic. Chest tubes remain in place. Chest x-ray has been changing as detailed below. She specifically denies coughing up anything of purulent color. She is not having any hemoptysis. PAST MEDICAL HISTORY: 1. Coronary artery disease, severe. 2. Hypertension. 3. Dyslipidemia. 4. Major depressive disorder. 5. Gastroesophageal reflux disease. 6. Chronic back pain. PAST SURGICAL HISTORY: 1. Coronary artery bypass graft surgery. 2. Percutaneous coronary intervention with stent x4. 3. Breast augmentation, bilateral. 4. L1 through S1 fusion. 5. Right foot spur removal. 6. section x3. 7. Repair of ruptured bladder. 8. Uterine surgery. 9. Tubal ligation, bilateral. 10. Tonsillectomy and adenoidectomy. 11. De [place]ervain contracture release. FAMILY HISTORY: Noncontributory. SOCIAL HISTORY: Negative for alcohol, tobacco, or illicit drug use currently. She uses multiple stress relieving and pain medications on a routine basis. She has no exposure to chemicals, dust, asbestos, or tuberculosis otherwise. ALLERGIES: NO KNOWN DRUG ALLERGIES. MEDICATIONS: All inpatient medications were reviewed and updated. REVIEW OF SYSTEMS: General, head, ears, eyes, nose, throat, cardiovascular, respiratory, GI, , musculoskeletal, neurologic, and skin is negative except as mentioned in the HPI. PHYSICAL EXAMINATION: VITAL SIGNS: Afebrile, pulse 127, blood pressure 115/96, respirations 14, saturation 93% on 3L nasal cannula. GENERAL: She is awake and alert. She is in mild distress secondary to discomfort/shortness of breath. HEART: Tachycardic. Regular. LUNGS: Decent air entry. Crackles are present. There are decreased air entry at the left base. No prolonged expiratory phase or wheezing is otherwise appreciated. ABDOMEN: Soft. Nontender and nondistended. Bowel sounds are positive. MUSCULOSKELETAL: No cyanosis or clubbing. There is trace pitting in the bilateral lower extremities. NEUROLOGIC: Grossly nonfocal. LABORATORY DATA: WBC 12.3 and up-trending, hemoglobin 6.0, and platelets 185, 000. INR 1.2. Bicarb 22, pH 7.34, and pCO2 of 42. Basic metabolic profile is otherwise unremarkable. IMAGING STUDIES: Chest x-ray from yesterday demonstrates new volume loss at the left base. Cardiomegaly is noted. There is no acute cardiopulmonary abnormality identified in the right lung. There is decent expansion and good aeration there. Sternotomy wires in place. There is a right-sided chest tube and a right subclavian central venous catheter, which terminates in good position. Breast implants are noted. ASSESSMENT: 1. Acute hypoxic respiratory failure. 2. Systemic inflammatory response syndrome. 3. Coronary artery bypass graft, postoperative day #4. DISCUSSION AND PLAN: I will give her Lidoderm patch for the back pain. We will give her some Chloraseptic spray for sore throat. We will initiate a bowel regimen, and perform a panculture. I will repeat a hemoglobin with this panculture to make certain we are not dropping off further. If she has increasing signs of sepsis , I would give her empiric antibiotics directed at healthcare-associated pneumonia. If she has further decline, CT of the chest with contrast in the pulmonary artery will be considered to exclude the possibility of PE, which I feel is less likely given that she has a very little requirements for oxygen. 70 minutes have been devoted to this patient in various activities. I personally reviewed all imaging studies and laboratory data noted within this document. For fifty percent of this time, I was interacting with the patient at the bedside or coordinating care with the care team. For the remainder of the time I was immediately available to the patient in the hospital unit. Job ID: [id number] MTDD
--- NOTE | 2018-07-28 17:01 | PQF ---
CLINICAL DOCUMENTATION IMPROVEMENT CLARIFICATION FORM: ICD-10 Updated PLEASE DO AN ADDENDUM TO THE PROGRESS NOTE WITH ANY DOCUMENTATION UPDATES OR ADDITIONS AND CARRY THROUGH TO DC SUMMARY. THANK YOU. DATE: 07/28/2018 ATTN: Dr. Martinez Please exercise your independent, professional judgment in responding to the clarification form. Clinical indicators are provided on the bottom of this form for your review Please check appropriate box(s): [ ] Acute blood loss anemia [ x] Post-op anemia related to acute blood loss [ ] Other diagnosis [ ] Unable to determine For continuity of documentation, please document condition throughout progress notes and discharge summary. Thank You. CLINICAL INDICATORS - SIGNS / SYMPTOMS/ LABS are present in the medical record: 07/28 (Michelle) Hb has drifted 11.0 9.3 8.2 7.0 6.0 = transfusion RISKS: 07/24 Operative Note: Coronary artery bypass grafting x 2 TREATMENT: Order 07/27: Transfuse Blood Prods: Transfuse 1 unit for hgb <8 Thank you, Kristy (This form is maintained as a part of the permanent medical record) 2015 [employer]. All Rights Reserved Kristy Antonio RN, BSN [email or web address] Office: [phone] [facility]
[2018-07-28] MEDS: Atorvastatin Calcium 40 MG TAB PO SCH (20:42)
[2018-07-28] MEDS: Senokot S 8.6-50 MG TAB PO SCH (20:42)
[2018-07-28] MEDS: traZODone HCl 50 MG TAB PO SCH (20:42)
[2018-07-28] MEDS: Pantoprazole 40 MG GRANULES PACKET PO SCH (20:42)
[2018-07-28] MEDS: Metoprolol Tartrate 25 MG TAB PO SCH (20:43)
--- NOTE | 2018-07-28 22:28 | PDOC.PN ---
- Subjective Encounter Start Date: 07/28/18 Encounter Start Time: 14:30 Patient seen and examined for med mngt. Pain controlled. No CP. No other complaints. No overnight events - Objective MAR Reviewed: Yes Vital Signs & Weight: Vital Signs (12 hours) Temp Pulse Ox 07/28/18 20:00 97.7 F 95 07/28/18 16:00 98.7 F 07/28/18 12:04 98.0 F 07/28/18 12:00 98.0 F Weight Weight 212 lb 11.937 oz Most Recent Monitor Data Heart Rate from ECG 103 NIBP 121/87 NIBP BP-Mean 98 Respiration from ECG 14 SpO2 96 I&O: 07/27/18 07/28/18 07/29/18 06:59 06:59 06:59 Intake Total 1153.8 2848 1550 Output Total 1685 2695 1905 Balance -531.2 153 -355 Result Diagrams: 07/29/18 05:20 07/29/18 05:20 Additional Labs: Accuchecks 07/28/18 11:00 POC Glucose 138 H EKG Reviewed by me: Yes (Tele SR) Phys Exam - Physical Examination Constitutional: NAD Respiratory: no wheezing, no rhonchi Cardiovascular: RRR, no rub chest tube+ Gastrointestinal: soft, non-tender, positive bowel sounds Neurological: moves all 4 limbs Dx/Plan (1) CAD (coronary artery disease) Code(s): I25.10 - ATHSCL HEART DISEASE OF [place] CORONARY ARTERY W/O ANG PCTRS Comment: s/p CABG this admission (2) Obesity (BMI 30-39.9) Code(s): E66.9 - OBESITY, UNSPECIFIED (3) Acute blood loss anemia Code(s): D62 - ACUTE POSTHEMORRHAGIC ANEMIA (4) Hyponatremia Code(s): E87.1 - HYPO-OSMOLALITY AND HYPONATREMIA (5) CKD (chronic kidney disease) Code(s): N18.9 - CHRONIC KIDNEY DISEASE, UNSPECIFIED Qualifiers: Chronic kidney disease stage: stage 2 (mild) Qualified Code(s): N18.2 - Chronic kidney disease, stage 2 (mild) (6) HTN (hypertension) Code(s): I10 - ESSENTIAL (PRIMARY) HYPERTENSION (7) GERD (gastroesophageal reflux disease) Code(s): K21.9 - GASTRO-ESOPHAGEAL REFLUX DISEASE WITHOUT ESOPHAGITIS - Plan cont current plan of care, plan discussed w/ family, DVT proph w/SCDs Cont ASA/Statins -: Cont Low dose Metoprolol -: Cont supportive care -: Cont Cardiac Rehab Review of Systems - Review of Systems Respiratory: SOB with Excertion. negative: Cough, Dry, Shortness of Breath, Hemoptysis, Pleuritic Pain, Sputum, Wheezing Cardiovascular: negative: chest pain, palpitations, orthopnea, paroxysmal nocturnal dyspnea, edema, light headedness, other - Medications/Allergies Allergies/Adverse Reactions: Allergies Allergy/AdvReac Type Severity Reaction Status Date / Time No Known Allergies Allergy Unverified 07/18/18 13:13 Medications: Current Medications Acetaminophen (Tylenol) 650 mg PO Q6H PRN PRN Reason: Headache/Fever Or Mild Pain Hydrocodone Bitart/Acetaminophen ([place] 5/325) 1 tab PO Q4H PRN PRN Reason: Moderate Pain (4-6) Hydrocodone Bitart/Acetaminophen ([place] 5/325) 2 tab PO Q4H PRN PRN Reason: Severe Pain (7-10) Last Admin: 07/28/18 15:11 Dose: 2 tab Al Hydroxide/Mg Hydroxide (Maalox) 30 ml PO Q4H PRN PRN Reason: Indigestion Aspirin (Ecotrin) 81 mg PO DAILY [facility] Last Admin: 07/28/18 08:38 Dose: 81 mg Atorvastatin Calcium (Lipitor) 80 mg PO HS [facility] Last Admin: 07/28/18 20:42 Dose: 80 mg Bisacodyl (Dulcolax) 10 mg PO Q12H PRN PRN Reason: Constipation Last Admin: 07/26/18 15:54 Dose: 10 mg Bisacodyl (Dulcolax) 10 mg RI Q12H PRN PRN Reason: Constipation Cyclobenzaprine HCl (Flexeril) 10 mg PO Q6HR [place] Last Admin: 07/28/18 17:59 Dose: Not Given Dextrose/Water (Dextrose 50%) 25 gm SLOW IVP PRN PRN PRN Reason: PER HYPOGLYCEMIC PROTOCOL Diazepam (Valium) 5 mg PO Q6H PRN PRN Reason: Muscle Spasm Last Admin: 07/28/18 20:47 Dose: 5 mg Diphenhydramine HCl (Benadryl) 25 mg PO HS PRN PRN Reason: Allergies Docusate Sodium (Colace) 100 mg PO BID [facility] Last Admin: 07/28/18 20:42 Dose: 100 mg Glucagon (Glucagon) 1 mg SC PRN PRN PRN Reason: PER HYPOGLYCEMIC PROTOCOL Guaifenesin/Dextromethorphan (Robitussin Dm) 15 ml PO Q4H PRN PRN Reason: Cough Last Admin: 07/27/18 02:23 Dose: 15 ml Hydralazine HCl (Apresoline) 10 mg SLOW IVP Q6H PRN PRN Reason: To Maintain SBP< 140mmHG Last Admin: 07/28/18 08:36 Dose: 10 mg Dextrose/Water (D5w) 1,000 mls @ 0 mls/hr IV INF PRN PRN Reason: PRN HYPOGLYCEMIC PROTOCOL Lidocaine (Lidoderm 5% Patch) 2 patch TD 1400 [facility] Last Admin: 07/28/18 13:48 Dose: 2 patch Metoprolol Tartrate (Lopressor) 25 mg PO BID [facility] Last Admin: 07/28/18 20:43 Dose: 25 mg Miscellaneous Medication (Lidocaine Patch Removal) 2 each TOP 0200 [facility] Morphine Sulfate (Morphine) 2 mg SLOW IVP Q15MIN PRN PRN Reason: Severe Pain (7-10) Ondansetron HCl (Zofran) 4 mg IVP Q6H PRN PRN Reason: Nausea/Vomiting Pantoprazole Sodium (Protonix) 40 mg PO HS [facility] Last Admin: 07/28/18 20:42 Dose: 40 mg Phenol (Chloraseptic [place] 180 Ml Bot) 1 ml PO BIDPRN PRN PRN Reason: Sore Throat Polyethylene Glycol (Miralax) 17 gm PO DAILY [facility] Potassium Chloride (Kcl) 20 meq IVPB PRN PRN PRN Reason: K level </= 4.0 Last Admin: 07/28/18 08:38 Dose: 20 meq Senna/Docusate Sodium (Senokot S) 1 tab PO BID [facility] Last Admin: 07/28/18 20:42 Dose: 1 tab Sertraline HCl (Zoloft) 200 mg PO DAILY [facility] Last Admin: 07/28/18 08:38 Dose: 200 mg Sodium Chloride (Flush - Normal Saline) 10 ml IVF Q12HR [facility] Last Admin: 07/28/18 20:47 Dose: 10 ml Trazodone HCl (Desyrel) 50 mg PO [facility] Last Admin: 07/28/18 20:42 Dose: 50 mg
[2018-07-29] MEDS: Lidocaine Patch Removal 1 EACH TOP SCH (01:20)
[2018-07-29] MEDS: Cyclobenzaprine 10 MG TAB PO SCH ×5 (01:20→23:01)
[2018-07-29 05:50] LABS: #Eosinphils 0.3 thou/uL (0.0-0.7); #Lymphocytes 0.9 thou/uL (1.20-3.40); #Monocytes 0.7 thou/uL (0.11-0.59); #Neutrophils 7.1 thou/uL (1.40-6.50); %Basophils 0.3 % (0.0-1.0); %Lymphocytes 9.6 % (21.0-51.0); %Monocytes 7.9 % (0.0-10.0); %Neutrophils 79.2 % (42.0-75.0); Hemoglobin 10.2 g/dL (12.0-16.0); Mean Corpuscular HGB CONC 32.9 g/dL (32.0-36.0); Mean Corpuscular Hemoglobin 30.5 pg (27.0-31.0); Mean Corpuscular Volume 92.6 fL (78.0-98.0); Mean Platelet Volume 7.6 fL (7.4-10.4); Platelet Count 200 thou/uL (130-400); Red Blood Cell (RBC) Count 3.33 mill/uL (4.20-5.40); White Blood Cell (WBC) Count 8.9 thou/uL (4.8-10.8)
[2018-07-29 05:57] LABS: Anion Gap 12 mmol/L (10-20); BUN (Urea Nitrogen) 16 mg/dL (9.8-20.1); Calc. Creatinine Clearance 123 mL/min (70-130); Carbon Dioxide 26 mmol/L (23-31); Chloride 102 mmol/L (98-107); Estimated GFR-MDRD 81; Glucose 130 mg/dL (80-115); Potassium 3.8 mmol/L (3.5-5.1); Sodium 136 mmol/L (136-145)
[2018-07-29] MEDS: Potassium Chloride 20 MEQ/100 ML PREMIX BAG IVPB PRN (06:19)
[2018-07-29] MEDS: Docusate 100 MG CAP PO SCH ×2 (07:41→20:21)
[2018-07-29] MEDS: Polyethylene Glycol 3350 17 GM Packet PO SCH (07:41)
[2018-07-29] MEDS: Metoprolol Tartrate 25 MG TAB PO SCH (07:41)
[2018-07-29] MEDS: Senokot S 8.6-50 MG TAB PO SCH ×2 (07:41→20:20)
[2018-07-29] MEDS: Aspirin 81 mg Enteric Coated Tablet PO SCH (07:41)
--- NOTE | 2018-07-29 07:47 | RAD ---
EXAM: Portable chest INDICATIONS: Chest tube follow-up COMPARISON: 07/27/2018 FINDINGS: Right-sided chest tube is unchanged. No significant pneumothorax. Mild cardiomegaly postop sternotomy change. No focal infiltrate. Central line unchanged. IMPRESSION: No significant interval change
[2018-07-29] MEDS ORDERED: Metoprolol Tartrate 25 MG TAB PO SCH (08:30)
[2018-07-29] MEDS: Metoprolol Tartrate 50 MG TAB PO SCH ×2 (08:32→20:21)
[2018-07-29] MEDS ORDERED: Guaifenesin DM 100-10/5 ML UDCUP PO PRN (08:53)
[2018-07-29] MEDS ORDERED: diphenhydrAMINE 25 MG CAP PO PRN (08:53)
[2018-07-29] MEDS ORDERED: Nitroglycerin 0.4 MG TAB (25 Tab Bottle) SL PRN (08:53)
[2018-07-29] MEDS ORDERED: Mineral Oil ENEMA PR PRN (08:53)
[2018-07-29] MEDS ORDERED: Artificial Tears 18 DROP/0.9 ML EA EYE PRN (08:53)
[2018-07-29] MEDS ORDERED: Mag-Al 1200 mg/1200 mg/30 ML UDCUP PO PRN (08:53)
[2018-07-29] MEDS ORDERED: Zolpidem Tartrate 5 MG TAB PO PRN (08:53)
[2018-07-29] MEDS ORDERED: Bisacodyl 10 MG SUPP PR PRN (08:53)
[2018-07-29] MEDS ORDERED: Bisacodyl 5 MG TAB PO PRN (08:53)
[2018-07-29] MEDS ORDERED: guaiFENesin ER 600 MG TAB PO SCH (13:15)
[2018-07-29] MEDS ORDERED: Azelastine 137 MCG/Spray 30 ML NS SCH (13:15)
--- NOTE | 2018-07-29 13:20 | PRG ---
DATE OF SERVICE: 07/29/2018 SERVICE: Pulmonary Medicine. INTERVAL HISTORY: The patient is doing outstanding from respiratory standpoint. Overnight, she did not have any significant fevers. Her heart rate is settling down. She is not having any blood pressure issues, nausea, or vomiting. Her appetite is actually coming around and she was able to stand up and take some steps yesterday, which also felt quite good. Her hemoglobin is rebounded into a very nice range. PHYSICAL EXAMINATION: VITAL SIGNS: Afebrile, pulse 100, blood pressure 147/91, respirations 16, saturation 100% on 3 L nasal cannula. HEENT: Normocephalic and atraumatic. Sclerae white. Conjunctivae pink. Oral mucosa is moist without lesions. LUNGS: Excellent air entry. A little bit of rhonchi are present, but clears comfortably with cough. No prolonged expiratory phase or wheezing appreciated. Minimal dependent crackles are noted. HEART: Normal rate. Regular. ABDOMEN: Soft, nontender, and nondistended. Bowel sounds are positive. MUSCULOSKELETAL: No cyanosis or clubbing. There is trace pitting in the bilateral lower extremities. NEUROLOGIC: Grossly nonfocal. LABORATORY DATA: WBC 8.9, hemoglobin 10.2 and stable, platelets 200,000. Basic metabolic profile is otherwise unremarkable. Calcium 9.0, creatinine 0.72 and stable. Tang catheter is positive for presumptive E. coli. Sensitivities are currently pending. Blood cultures are negative. IMAGING STUDIES: Chest x-ray demonstrates improved aeration of the left base. There is a right subclavian central venous catheter that terminates in excellent position. Reduced lung volumes are present in bilateral lung miramontes. Cardiac silhouette is actually stable, if not narrow. Right-sided thoracostomy tube and mediastinal drain are stable. ASSESSMENT: 1. Acute hypoxic respiratory failure, resolving. 2. Atelectasis of the left lower lobe, resolved. 3. Systemic inflammatory response syndrome, improving. 4. Coronary artery bypass graft, postoperative day 4. 5. Escherichia coli contaminating urine. DISCUSSION AND PLAN: I am not inclined to give her any antibiotics at this point. If she has increasing signs of sepsis, we will direct an antibiotic at that urine specimen. I would prefer to just simply get her Tang catheter out. Pulmonary Critical Care will continue to follow along, and we will increase mobilization as tolerated. Pulmonary will continue to follow for the time being. Job ID: [id number]
[2018-07-29] MEDS: Lidocaine 5% Patch TD SCH (13:24)
[2018-07-29] MEDS ORDERED: HYDROcodone/Acetaminophen 5/325 mg Tablet PO PRN (18:23)
--- NOTE | 2018-07-29 19:58 | PDOC.PN ---
- Subjective Encounter Start Date: 07/29/18 Encounter Start Time: 12:30 - Objective MAR Reviewed: Yes Vital Signs & Weight: Vital Signs (12 hours) Temp Pulse Pulse BP BP Pulse Ox Pulse Ox 07/29/18 16:00 99.2 F 07/29/18 13:56 113 H 107 H 127/94 H 137/84 94 L 07/29/18 09:06 108 H 113 H 117/83 173/96 H 98 07/29/18 08:00 98.3 F 95 Pulse Ox 07/29/18 16:00 07/29/18 13:56 95 07/29/18 09:06 97 07/29/18 08:00 Weight Weight 227 lb 4.745 oz Most Recent Monitor Data Heart Rate from ECG 105 NIBP 126/75 NIBP BP-Mean 92 Respiration from ECG 25 SpO2 100 I&O: 07/28/18 07/29/18 07/30/18 06:59 06:59 06:59 Intake Total 2848 1550 1000 Output Total 2695 2690 1600 Balance 153 -1140 -600 Result Diagrams: 07/29/18 05:20 07/29/18 05:20 Radiology Reviewed by me: Yes (CXR - reviewed) EKG Reviewed by me: Yes (Tele SR) Phys Exam - Physical Examination Constitutional: NAD Respiratory: no wheezing, no rhonchi Cardiovascular: RRR, no rub Gastrointestinal: soft, non-tender, positive bowel sounds Neurological: moves all 4 limbs Dx/Plan (1) CAD (coronary artery disease) Code(s): I25.10 - ATHSCL HEART DISEASE OF [place] CORONARY ARTERY W/O ANG PCTRS Comment: s/p CABG this admission (2) Obesity (BMI 30-39.9) Code(s): E66.9 - OBESITY, UNSPECIFIED (3) Acute blood loss anemia Code(s): D62 - ACUTE POSTHEMORRHAGIC ANEMIA (4) Hyponatremia Code(s): E87.1 - HYPO-OSMOLALITY AND HYPONATREMIA (5) CKD (chronic kidney disease) Code(s): N18.9 - CHRONIC KIDNEY DISEASE, UNSPECIFIED Qualifiers: Chronic kidney disease stage: stage 2 (mild) Qualified Code(s): N18.2 - Chronic kidney disease, stage 2 (mild) (6) HTN (hypertension) Code(s): I10 - ESSENTIAL (PRIMARY) HYPERTENSION (7) GERD (gastroesophageal reflux disease) Code(s): K21.9 - GASTRO-ESOPHAGEAL REFLUX DISEASE WITHOUT ESOPHAGITIS - Plan cont current plan of care, díaz catheter, PT/OT, DVT proph w/SCDs Cont ASA/Metoprolol/Statins -: Treat constipation -: Cont supportive care Review of Systems - Review of Systems Respiratory: negative: Cough, Dry, Shortness of Breath, Hemoptysis, SOB with Excertion, Pleuritic Pain, Sputum, Wheezing Cardiovascular: negative: chest pain, palpitations, orthopnea, paroxysmal nocturnal dyspnea, edema, light headedness, other - Medications/Allergies Allergies/Adverse Reactions: Allergies Allergy/AdvReac Type Severity Reaction Status Date / Time No Known Allergies Allergy Unverified 07/18/18 13:13 Medications: Current Medications Hydrocodone Bitart/Acetaminophen ([place] 5/325) 1 tab PO Q4H PRN PRN Reason: MODERATE PAIN 4-6 Hydrocodone Bitart/Acetaminophen ([place] 5/325) 2 tab PO Q4H PRN PRN Reason: SEVERE PAIN 7-10 Al Hydroxide/Mg Hydroxide (Maalox) 30 ml PO Q4H PRN PRN Reason: Indigestion Albuterol/Ipratropium (Duoneb) 3 ml NEB [id number] PRN PRN Reason: Respiratory Distress Artificial Tears (Tears Naturale) 0 drop EA EYE PRN PRN PRN Reason: Dry Eyes Aspirin (Ecotrin) 81 mg PO DAILY [facility] Last Admin: 07/29/18 07:41 Dose: 81 mg Atorvastatin Calcium (Lipitor) 80 mg PO HS [facility] Last Admin: 07/28/18 20:42 Dose: 80 mg Azelastine HCl (Azelastine) 30 ml NS DAILY [facility] Bisacodyl (Dulcolax) 10 mg PO Q12H PRN PRN Reason: Constipation Bisacodyl (Dulcolax) 10 mg AR Q12H PRN PRN Reason: Constipation Cyclobenzaprine HCl (Flexeril) 10 mg PO Q6HR [facility] Last Admin: 07/29/18 17:23 Dose: 10 mg Diazepam (Valium) 5 mg PO Q6H PRN PRN Reason: Muscle Spasm Last Admin: 07/28/18 20:47 Dose: 5 mg Diphenhydramine HCl (Benadryl) 25 mg PO Q6H PRN PRN Reason: Itching & Insomnia or Rudy Harrison Docusate Sodium (Colace) 100 mg PO BID [facility] Last Admin: 07/29/18 07:41 Dose: 100 mg Guaifenesin (Mucinex) 600 mg PO Q12HR [facility] Guaifenesin/Dextromethorphan (Robitussin Dm) 15 ml PO Q4H PRN PRN Reason: Cough Lidocaine (Lidoderm 5% Patch) 2 patch TD 1400 [facility] Last Admin: 07/29/18 13:24 Dose: 2 patch Metoprolol Tartrate (Lopressor) 50 mg PO BID [facility] Last Admin: 07/29/18 08:32 Dose: Not Given Mineral Oil (Fleet Mineral Oil) 133 ml AR DAILYPRN PRN PRN Reason: Constipation Miscellaneous Medication (Lidocaine Patch Removal) 2 each TOP 0200 [facility] Last Admin: 07/29/18 01:20 Dose: 2 each Nitroglycerin (Nitrostat) 0.4 mg SL Q5MIN PRN PRN Reason: Chest Pain Ondansetron HCl (Zofran) 4 mg IVP Q6H PRN PRN Reason: Nausea/Vomiting Last Admin: 07/29/18 17:23 Dose: 4 mg Pantoprazole Sodium (Protonix) 40 mg PO HS [facility] Last Admin: 07/28/18 20:42 Dose: 40 mg Phenol (Chloraseptic [place] 180 Ml Bot) 1 ml PO BIDPRN PRN PRN Reason: Sore Throat Polyethylene Glycol (Miralax) 17 gm PO DAILY [facility] Last Admin: 07/29/18 07:41 Dose: 17 gm Senna/Docusate Sodium (Senokot S) 1 tab PO BID [facility] Last Admin: 07/29/18 07:41 Dose: 1 tab Sertraline HCl (Zoloft) 200 mg PO DAILY [facility] Last Admin: 07/29/18 07:41 Dose: 200 mg Sodium Chloride (Flush - Normal Saline) 10 ml IVF Q12HR [facility] Last Admin: 07/29/18 07:41 Dose: 10 ml Trazodone HCl (Desyrel) 50 mg PO HS [facility] Last Admin: 07/28/18 20:42 Dose: 50 mg Zolpidem Tartrate (Ambien) 5 mg PO HSPRN PRN PRN Reason: Insomnia
[2018-07-29] MEDS: guaiFENesin ER 600 MG TAB PO SCH (20:20)
[2018-07-29] MEDS: Pantoprazole 40 MG GRANULES PACKET PO SCH (20:20)
[2018-07-29] MEDS: Atorvastatin Calcium 40 MG TAB PO SCH (20:20)
[2018-07-29] MEDS: HYDROcodone/Acetaminophen 5/325 mg Tablet PO PRN (20:21)
[2018-07-29] MEDS: traZODone HCl 50 MG TAB PO SCH (20:21)
[2018-07-30] MEDS: Lidocaine Patch Removal 1 EACH TOP SCH (02:45)
[2018-07-30] MEDS: Cyclobenzaprine 10 MG TAB PO SCH ×3 (05:19→18:46)
[2018-07-30 05:33] LABS: #Eosinphils 0.3 thou/uL (0.0-0.7); #Lymphocytes 1.2 thou/uL (1.20-3.40); #Monocytes 0.8 thou/uL (0.11-0.59); %Basophils 0.3 % (0.0-1.0); %Eosinophils 3.4 % (0.0-10.0); %Lymphocytes 14.9 % (21.0-51.0); %Monocytes 9.8 % (0.0-10.0); %Neutrophils 71.7 % (42.0-75.0); Hemoglobin 10.1 g/dL (12.0-16.0); Mean Corpuscular HGB CONC 32.4 g/dL (32.0-36.0); Mean Corpuscular Hemoglobin 30.7 pg (27.0-31.0); Mean Platelet Volume 7.5 fL (7.4-10.4); Platelet Count 216 thou/uL (130-400); RBC Distribution Width 13.8 % (11.5-14.5); Red Blood Cell (RBC) Count 3.28 mill/uL (4.20-5.40); White Blood Cell (WBC) Count 8.3 thou/uL (4.8-10.8)
--- NOTE | 2018-07-30 11:16 | PRG ---
DATE OF SERVICE: 07/30/2018 SUBJECTIVE: Ms. Nicole is doing well. She is about to get up. No chest pain or pressure. OBJECTIVE: VITAL SIGNS: Blood pressure 127/86 and pulse is 102, it is sinus. LUNGS: Clear. CARDIAC: Normal S1 and normal S2. ABDOMEN: Soft and nontender. EXTREMITIES: There is mild edema. ASSESSMENT: 1. Status post coronary artery bypass grafting, doing well. 2. Sinus tachycardia on beta blockers. PLAN: Continue supportive care. No other changes. Continue beta blockers as well as aspirin and statins. Job ID: [id number]
[2018-07-30] MEDS: Metoprolol Tartrate 50 MG TAB PO SCH ×2 (11:22→21:50)
[2018-07-30] MEDS: Senokot S 8.6-50 MG TAB PO SCH ×2 (11:22→20:32)
[2018-07-30] MEDS: Docusate 100 MG CAP PO SCH ×2 (11:23→20:27)
[2018-07-30] MEDS: Azelastine 137 MCG/Spray 30 ML NS SCH (11:23)
[2018-07-30] MEDS: guaiFENesin ER 600 MG TAB PO SCH ×2 (11:23→20:27)
[2018-07-30] MEDS: Aspirin 81 mg Enteric Coated Tablet PO SCH (11:23)
--- NOTE | 2018-07-30 11:23 | PRG ---
DATE OF SERVICE: 07/30/2018 SERVICE: Pulmonary Medicine. INTERVAL HISTORY: The patient is doing really well from respiratory standpoint. She has been weaned down to 2 L nasal cannula. She has been able to walk with physical therapy and indicates that her strength is improving dramatically. Her throat discomfort, and other discomforts have improved. She has no complaints of fevers, chills, or overnight events. PHYSICAL EXAMINATION: VITAL SIGNS: Afebrile, pulse 102, blood pressure 127/86, respirations 14, and saturation 99% on 2 L nasal cannula. GENERAL: The patient is awake and alert, in no apparent distress. LUNGS: Excellent air entry. There is no prolonged expiratory phase or wheezing present. HEART: Normal rate. Regular. ABDOMEN: Soft, nontender, and nondistended. Bowel sounds are positive. MUSCULOSKELETAL: No cyanosis or clubbing. There is no pitting in the bilateral lower extremities. NEUROLOGIC: Grossly nonfocal. LABORATORY DATA: WBC 8.3, hemoglobin 10.1, and platelets 216,000. Basic metabolic profile is otherwise unremarkable. E. coli is growing in the urine. This is primarily a pansensitive organism. Body fluid cultures negative to-date. ASSESSMENT: 1. Acute hypoxic respiratory failure, resolving. 2. Systemic inflammatory response syndrome, continuing to improve. 3. Coronary artery disease, status post coronary artery bypass graft, postop day 5. 4. Escherichia coli colonization of urine. DISCUSSION AND PLAN: The patient remains stable for transition out of the ICU. She has increasing signs of sepsis. Our therapy for the E. coli would be indicated. At this point, she has no further requirements for inpatient Pulmonary or Critical Care opinion, so when she lands on the floor, I will sign off. Please call with additional questions or concerns through time. Job ID: [id number]
[2018-07-30] MEDS: Polyethylene Glycol 3350 17 GM Packet PO SCH (11:24)
[2018-07-30] MEDS: Lidocaine 5% Patch TD SCH (14:30)
[2018-07-30] MEDS: HYDROcodone/Acetaminophen 5/325 mg Tablet PO PRN (14:31)
--- NOTE | 2018-07-30 16:15 | PDOC.PN ---
- Subjective Encounter Start Date: 07/30/18 Encounter Start Time: 09:30 Patient seen and examined for CAD. Pain controlled. On chair. No CP. No new complaints. No overnight events - Objective MAR Reviewed: Yes Vital Signs & Weight: Vital Signs (12 hours) Temp Pulse Pulse BP BP Pulse Ox 07/30/18 12:00 99.2 F 07/30/18 09:32 111 H 103 H 127/86 117/89 07/30/18 08:00 98.4 F 96 Weight Weight 220 lb 0.341 oz Most Recent Monitor Data Heart Rate from ECG 95 NIBP 111/82 NIBP BP-Mean 91 Respiration from ECG 13 SpO2 96 I&O: 07/29/18 07/30/18 07/31/18 06:59 06:59 06:59 Intake Total 1550 1450 717 Output Total 2690 2300 450 Balance -1140 -850 267 Result Diagrams: 07/30/18 04:59 07/29/18 05:20 Phys Exam - Physical Examination Constitutional: NAD Respiratory: no wheezing, no rhonchi Cardiovascular: RRR, no rub Gastrointestinal: soft, non-tender, positive bowel sounds Neurological: moves all 4 limbs Dx/Plan (1) CAD (coronary artery disease) Code(s): I25.10 - ATHSCL HEART DISEASE OF [place] CORONARY ARTERY W/O ANG PCTRS Comment: s/p CABG this admission (2) Obesity (BMI 30-39.9) Code(s): E66.9 - OBESITY, UNSPECIFIED (3) Acute blood loss anemia Code(s): D62 - ACUTE POSTHEMORRHAGIC ANEMIA (4) Hyponatremia Code(s): E87.1 - HYPO-OSMOLALITY AND HYPONATREMIA (5) CKD (chronic kidney disease) Code(s): N18.9 - CHRONIC KIDNEY DISEASE, UNSPECIFIED Qualifiers: Chronic kidney disease stage: stage 2 (mild) Qualified Code(s): N18.2 - Chronic kidney disease, stage 2 (mild) (6) HTN (hypertension) Code(s): I10 - ESSENTIAL (PRIMARY) HYPERTENSION (7) GERD (gastroesophageal reflux disease) Code(s): K21.9 - GASTRO-ESOPHAGEAL REFLUX DISEASE WITHOUT ESOPHAGITIS - Plan cont current plan of care, DVT proph w/SCDs Cont supportive care -: Cont ASA/Statins -: Cont Metoprolol Review of Systems - Review of Systems Respiratory: negative: Cough, Dry, Shortness of Breath, Hemoptysis, SOB with Excertion, Pleuritic Pain, Sputum, Wheezing Cardiovascular: negative: chest pain, palpitations, orthopnea, paroxysmal nocturnal dyspnea, edema, light headedness, other - Medications/Allergies Allergies/Adverse Reactions: Allergies Allergy/AdvReac Type Severity Reaction Status Date / Time No Known Allergies Allergy Unverified 07/18/18 13:13 Medications: Current Medications Hydrocodone Bitart/Acetaminophen ([place] 5/325) 1 tab PO Q4H PRN PRN Reason: MODERATE PAIN 4-6 Hydrocodone Bitart/Acetaminophen ([place] 5/325) 2 tab PO Q4H PRN PRN Reason: SEVERE PAIN 7-10 Last Admin: 07/30/18 14:31 Dose: 2 tab Al Hydroxide/Mg Hydroxide (Maalox) 30 ml PO Q4H PRN PRN Reason: Indigestion Albuterol/Ipratropium (Duoneb) 3 ml NEB [id number] PRN PRN Reason: Respiratory Distress Artificial Tears (Tears Naturale) 0 drop EA EYE PRN PRN PRN Reason: Dry Eyes Aspirin (Ecotrin) 81 mg PO DAILY [facility] Last Admin: 07/30/18 11:23 Dose: 81 mg Atorvastatin Calcium (Lipitor) 80 mg PO HS [facility] Last Admin: 07/29/18 20:20 Dose: 80 mg Azelastine HCl (Azelastine) 30 ml NS DAILY [facility] Last Admin: 07/30/18 11:23 Dose: 1 spr Bisacodyl (Dulcolax) 10 mg PO Q12H PRN PRN Reason: Constipation Bisacodyl (Dulcolax) 10 mg ID Q12H PRN PRN Reason: Constipation Cyclobenzaprine HCl (Flexeril) 10 mg PO Q6HR [facility] Last Admin: 07/30/18 11:23 Dose: 10 mg Diazepam (Valium) 5 mg PO Q6H PRN PRN Reason: Muscle Spasm Last Admin: 07/28/18 20:47 Dose: 5 mg Diphenhydramine HCl (Benadryl) 25 mg PO Q6H PRN PRN Reason: Itching & Insomnia or Rudy Harrison Docusate Sodium (Colace) 100 mg PO BID [facility] Last Admin: 07/30/18 11:23 Dose: 100 mg Guaifenesin (Mucinex) 600 mg PO Q12HR [facility] Last Admin: 07/30/18 11:23 Dose: 600 mg Guaifenesin/Dextromethorphan (Robitussin Dm) 15 ml PO Q4H PRN PRN Reason: Cough Lidocaine (Lidoderm 5% Patch) 2 patch TD 1400 [facility] Last Admin: 07/30/18 14:30 Dose: 2 patch Metoprolol Tartrate (Lopressor) 50 mg PO BID [facility] Last Admin: 07/30/18 11:22 Dose: 50 mg Mineral Oil (Fleet Mineral Oil) 133 ml ID DAILYPRN PRN PRN Reason: Constipation Miscellaneous Medication (Lidocaine Patch Removal) 2 each TOP 0200 [facility] Last Admin: 07/30/18 02:45 Dose: 2 each Nitroglycerin (Nitrostat) 0.4 mg SL Q5MIN PRN PRN Reason: Chest Pain Ondansetron HCl (Zofran) 4 mg IVP Q6H PRN PRN Reason: Nausea/Vomiting Last Admin: 07/29/18 17:23 Dose: 4 mg Pantoprazole Sodium (Protonix) 40 mg PO HS [facility] Last Admin: 07/29/18 20:20 Dose: 40 mg Phenol (Chloraseptic [place] 180 Ml Bot) 1 ml PO BIDPRN PRN PRN Reason: Sore Throat Polyethylene Glycol (Miralax) 17 gm PO DAILY [facility] Last Admin: 07/30/18 11:24 Dose: 17 gm Senna/Docusate Sodium (Senokot S) 1 tab PO BID [facility] Last Admin: 07/30/18 11:22 Dose: 1 tab Sertraline HCl (Zoloft) 200 mg PO DAILY [facility] Last Admin: 07/30/18 11:22 Dose: 200 mg Sodium Chloride (Flush - Normal Saline) 10 ml IVF Q12HR [facility] Last Admin: 07/30/18 11:24 Dose: 10 ml Trazodone HCl (Desyrel) 50 mg PO HS [facility] Last Admin: 07/29/18 20:21 Dose: 50 mg Zolpidem Tartrate (Ambien) 5 mg PO HSPRN PRN PRN Reason: Insomnia
[2018-07-30] MEDS: Diazepam 5 MG TAB PO PRN (16:39)
[2018-07-30] MEDS: Atorvastatin Calcium 40 MG TAB PO SCH (20:26)
[2018-07-30] MEDS: Pantoprazole 40 MG GRANULES PACKET PO SCH (20:31)
[2018-07-30] MEDS: traZODone HCl 50 MG TAB PO SCH (20:32)
[2018-07-31] MEDS: Cyclobenzaprine 10 MG TAB PO SCH ×3 (00:12→12:00)
[2018-07-31] MEDS: HYDROcodone/Acetaminophen 5/325 mg Tablet PO PRN ×2 (00:32→20:54)
[2018-07-31] MEDS: Lidocaine Patch Removal 1 EACH TOP SCH (02:45)
[2018-07-31] MEDS: guaiFENesin ER 600 MG TAB PO SCH ×2 (08:26→20:51)
[2018-07-31] MEDS: Polyethylene Glycol 3350 17 GM Packet PO SCH (08:26)
[2018-07-31] MEDS: Aspirin 81 mg Enteric Coated Tablet PO SCH (08:27)
[2018-07-31] MEDS: Metoprolol Tartrate 50 MG TAB PO SCH ×2 (08:27→20:52)
[2018-07-31] MEDS: Senokot S 8.6-50 MG TAB PO SCH ×2 (08:28→20:52)
[2018-07-31] MEDS: Docusate 100 MG CAP PO SCH ×2 (08:28→20:51)
[2018-07-31] MEDS: Azelastine 137 MCG/Spray 30 ML NS SCH (08:29)
[2018-07-31] MEDS ORDERED: Cyclobenzaprine 10 MG TAB PO PRN (12:03)
--- NOTE | 2018-07-31 12:44 | PRG ---
DATE OF SERVICE: 07/31/2018 SUBJECTIVE: Ms. Nicole is doing well. She has been waiting for a bed on telemetry. No complaints. OBJECTIVE: VITAL SIGNS: Blood pressure 120/79, pulse is 80 to 90 and sinus. LUNGS: Clear. CARDIAC: Normal S1 and normal S2. ASSESSMENT: 1. Status post bypass surgery, doing well. 2. Sinus tachycardia, controlled. PLAN: The plan is to probably release her home tomorrow. Job ID: [id number]
--- NOTE | 2018-07-31 13:16 | PRG ---
DATE OF SERVICE: 07/31/2018 SERVICE: Pulmonary Medicine. INTERVAL HISTORY: The patient is doing really well from respiratory standpoint. Denies any current chest pain, fevers, chills, nausea, vomiting, or diarrhea. Otherwise, there has been no interval change to the patient's condition. She is breathing comfortably, tolerating p.o., and working with physical therapy well. PHYSICAL EXAMINATION: VITAL SIGNS: Afebrile, pulse 92, blood pressure 120/79, respirations 17, and saturation 94% on room air. GENERAL: The patient is awake and alert, in no apparent distress. LUNGS: Rhonchi are present, but clear with cough. No crackles or wheezing appreciated. HEART: Normal rate. Regular. ABDOMEN: Soft, nontender, and nondistended. Bowel sounds are positive. MUSCULOSKELETAL: No cyanosis or clubbing. There is no pitting in the bilateral lower extremities. NEUROLOGIC: Grossly nonfocal. ASSESSMENT: 1. Acute hypoxic respiratory failure, resolved. 2. Systemic inflammatory response syndrome, resolved. 3. Coronary artery disease, status post coronary artery bypass graft, postop day 6. 4. Escherichia coli colonization of urine. DISCUSSION AND PLAN: From my perspective, she is stable for transition out of the ICU or discharged home. Pulmonary will continue to follow in this location. When she arrives on the floor, she will have no further requirements from my opinion and I will sign off. Job ID: [id number]
[2018-07-31] MEDS: Lidocaine 5% Patch TD SCH (14:02)
--- NOTE | 2018-07-31 17:40 | PDOC.PN ---
- Subjective Encounter Start Date: 07/31/18 Encounter Start Time: 10:30 Patient seen and examined for CAD. No new complaints. No overnight events - Objective MAR Reviewed: Yes Vital Signs & Weight: Vital Signs (12 hours) Temp Pulse Pulse BP BP Pulse Ox 07/31/18 15:42 98.2 F 07/31/18 13:52 97 87 123/83 117/83 07/31/18 11:49 98.0 F 07/31/18 11:00 98.0 F 07/31/18 10:01 105 H 94 129/74 99/65 07/31/18 07:42 94 L 07/31/18 07:08 95 07/31/18 07:00 97.8 F Weight Weight 222 lb 7.143 oz Most Recent Monitor Data Heart Rate from ECG 95 NIBP 130/107 NIBP BP-Mean 114 Respiration from ECG 15 SpO2 96 I&O: 07/30/18 07/31/18 08/01/18 06:59 06:59 06:59 Intake Total 1450 1587 1560 Output Total 2300 2375 1000 Balance -850 -788 560 Result Diagrams: 07/30/18 04:59 07/29/18 05:20 EKG Reviewed by me: Yes (Tele SR) Phys Exam - Physical Examination Constitutional: NAD Respiratory: no wheezing, no rhonchi Cardiovascular: RRR, no rub Gastrointestinal: soft, non-tender, positive bowel sounds Musculoskeletal: no edema Neurological: moves all 4 limbs Psychiatric: A&O x 3 Dx/Plan (1) CAD (coronary artery disease) Code(s): I25.10 - ATHSCL HEART DISEASE OF [place] CORONARY ARTERY W/O ANG PCTRS Comment: s/p CABG this admission (2) Acute blood loss anemia Code(s): D62 - ACUTE POSTHEMORRHAGIC ANEMIA (3) Hyponatremia Code(s): E87.1 - HYPO-OSMOLALITY AND HYPONATREMIA (4) CKD (chronic kidney disease) Code(s): N18.9 - CHRONIC KIDNEY DISEASE, UNSPECIFIED Qualifiers: Chronic kidney disease stage: stage 2 (mild) Qualified Code(s): N18.2 - Chronic kidney disease, stage 2 (mild) (5) HTN (hypertension) Code(s): I10 - ESSENTIAL (PRIMARY) HYPERTENSION (6) GERD (gastroesophageal reflux disease) Code(s): K21.9 - GASTRO-ESOPHAGEAL REFLUX DISEASE WITHOUT ESOPHAGITIS (7) Morbid obesity with BMI of 40.0-44.9, adult Code(s): E66.01 - [place] (SEVERE) OBESITY DUE TO EXCESS CALORIES; Z68.41 - BODY MASS INDEX (BMI) 40.0-44.9, ADULT Status: Chronic - Plan cont current plan of care, incentive spirometry, out of bed/ambulate, DVT proph w/SCDs Cont ASA -: Cont Statins -: Cont Metoprolol -: Transfer to [facility] -: [facility] setup Review of Systems - Review of Systems Respiratory: negative: Cough, Dry, Shortness of Breath, Hemoptysis, SOB with Excertion, Pleuritic Pain, Sputum, Wheezing Cardiovascular: negative: chest pain, palpitations, orthopnea, paroxysmal nocturnal dyspnea, edema, light headedness, other - Medications/Allergies Allergies/Adverse Reactions: Allergies Allergy/AdvReac Type Severity Reaction Status Date / Time No Known Allergies Allergy Unverified 07/18/18 13:13 Medications: Current Medications Hydrocodone Bitart/Acetaminophen ([place] 5/325) 1 tab PO Q4H PRN PRN Reason: MODERATE PAIN 4-6 Hydrocodone Bitart/Acetaminophen ([place] 5/325) 2 tab PO Q4H PRN PRN Reason: SEVERE PAIN 7-10 Last Admin: 07/31/18 00:32 Dose: 2 tab Al Hydroxide/Mg Hydroxide (Maalox) 30 ml PO Q4H PRN PRN Reason: Indigestion Albuterol/Ipratropium (Duoneb) 3 ml NEB [id number] PRN PRN Reason: Respiratory Distress Artificial Tears (Tears Naturale) 0 drop EA EYE PRN PRN PRN Reason: Dry Eyes Aspirin (Ecotrin) 81 mg PO DAILY [facility] Last Admin: 07/31/18 08:27 Dose: 81 mg Atorvastatin Calcium (Lipitor) 80 mg PO HS [facility] Last Admin: 07/30/18 20:26 Dose: 80 mg Azelastine HCl (Azelastine) 30 ml NS DAILY [facility] Last Admin: 07/31/18 08:29 Dose: 2 spr Bisacodyl (Dulcolax) 10 mg PO Q12H PRN PRN Reason: Constipation Last Admin: 07/31/18 00:33 Dose: 10 mg Bisacodyl (Dulcolax) 10 mg [place] Q12H PRN PRN Reason: Constipation Cyclobenzaprine HCl (Flexeril) 10 mg PO Q6H PRN PRN Reason: Muscle Spasm Diazepam (Valium) 5 mg PO Q6H PRN PRN Reason: Muscle Spasm Last Admin: 07/30/18 16:39 Dose: 5 mg Diphenhydramine HCl (Benadryl) 25 mg PO Q6H PRN PRN Reason: Itching & Insomnia or Rudy Harrison Docusate Sodium (Colace) 100 mg PO BID [facility] Last Admin: 07/31/18 08:28 Dose: 100 mg Guaifenesin (Mucinex) 600 mg PO Q12HR [facility] Last Admin: 07/31/18 08:26 Dose: 600 mg Guaifenesin/Dextromethorphan (Robitussin Dm) 15 ml PO Q4H PRN PRN Reason: Cough Last Admin: 07/30/18 17:01 Dose: 15 ml Lidocaine (Lidoderm 5% Patch) 2 patch TD 1400 [facility] Last Admin: 07/31/18 14:02 Dose: 2 patch Metoprolol Tartrate (Lopressor) 50 mg PO BID [facility] Last Admin: 07/31/18 08:27 Dose: 50 mg Mineral Oil (Fleet Mineral Oil) 133 ml [place] DAILYPRN PRN PRN Reason: Constipation Miscellaneous Medication (Lidocaine Patch Removal) 2 each TOP 0200 [facility] Last Admin: 07/31/18 02:45 Dose: 2 each Nitroglycerin (Nitrostat) 0.4 mg SL Q5MIN PRN PRN Reason: Chest Pain Ondansetron HCl (Zofran) 4 mg IVP Q6H PRN PRN Reason: Nausea/Vomiting Last Admin: 07/29/18 17:23 Dose: 4 mg Pantoprazole Sodium (Protonix) 40 mg PO HS [facility] Last Admin: 07/30/18 20:31 Dose: 40 mg Phenol (Chloraseptic [place] 180 Ml Bot) 1 ml PO BIDPRN PRN PRN Reason: Sore Throat Polyethylene Glycol (Miralax) 17 gm PO DAILY [facility] Last Admin: 07/31/18 08:26 Dose: 17 gm Senna/Docusate Sodium (Senokot S) 1 tab PO BID [facility] Last Admin: 07/31/18 08:28 Dose: 1 tab Sertraline HCl (Zoloft) 200 mg PO DAILY [facility] Last Admin: 07/31/18 08:27 Dose: 200 mg Sodium Chloride (Flush - Normal Saline) 10 ml IVF Q12HR [facility] Last Admin: 07/31/18 08:29 Dose: 10 ml Trazodone HCl (Desyrel) 50 mg PO HS [facility] Last Admin: 07/30/18 20:32 Dose: 50 mg Zolpidem Tartrate (Ambien) 5 mg PO HSPRN PRN PRN Reason: Insomnia
[2018-07-31] MEDS: Atorvastatin Calcium 40 MG TAB PO SCH (20:51)
[2018-07-31] MEDS: traZODone HCl 50 MG TAB PO SCH (20:51)
[2018-07-31] MEDS: Pantoprazole 40 MG GRANULES PACKET PO SCH (20:52)
[2018-08-01] MEDS: Lidocaine Patch Removal 1 EACH TOP SCH (02:14)
[2018-08-01] MEDS: Aspirin 81 mg Enteric Coated Tablet PO SCH (10:19)
[2018-08-01] MEDS: guaiFENesin ER 600 MG TAB PO SCH (10:19)
[2018-08-01] MEDS: Metoprolol Tartrate 50 MG TAB PO SCH (10:19)
[2018-08-01] MEDS: Docusate 100 MG CAP PO SCH (10:20)
[2018-08-01] MEDS: Azelastine 137 MCG/Spray 30 ML NS SCH (10:20)
[2018-08-01] MEDS: Polyethylene Glycol 3350 17 GM Packet PO SCH (10:20)
[2018-08-01] MEDS: Senokot S 8.6-50 MG TAB PO SCH (10:21)
[2018-08-01] MEDS: HYDROcodone/Acetaminophen 5/325 mg Tablet PO PRN (12:07)
[2018-08-01 12:12] VITALS: BP 135/66; TEMP 98.2
[2018-08-01 14:03] VITALS: BMI 39.6
[2018-08-01] MEDS: Lidocaine 5% Patch TD SCH (14:29)
--- NOTE | 2018-08-01 17:09 | DIS ---
DATE OF ADMISSION: 07/23/2018 DATE OF DISCHARGE: 08/01/2018 DISCHARGE DISPOSITION: Home with [facility]. ALLERGIES: NO KNOWN DRUG ALLERGIES. DISCHARGE MEDICATIONS: 1. Aspirin 81 mg daily. 2. Flexeril 10 mg at bedtime. 3. Benadryl 25 mg as needed. 4. [place] as needed. 5. Ibuprofen as needed. 6. Protonix 40 mg daily. 7. Zoloft 200 mg daily. 8. Trazodone 50 mg at bedtime. 9. Lipitor 80 mg at bedtime. 10. Lopressor 50 mg b.i.d. The patient was seen on the day of discharge. Denies any new complaints. No chest pain, shortness of breath, or palpitations reported. BRIEF HOSPITAL COURSE: The patient is a 68-year-old female with hypertension, obesity, and GERD, presented to the hospital on 23 July 2018, for elective cardiac catheterization. The patient was found to have 3-vessel coronary artery disease. She underwent coronary artery bypass grafting on 24 July 2018, by Dr. Martinez. Postoperatively, she was monitored in the intensive care unit. She has been cleared by Cardiovascular and Cardiology for discharge. ARCADIO inhibitor or ARB will be later restarted once the blood pressure improves. Vital signs on the day of discharge showed temperature 98.2, pulse rate of 91, respirations 18, O2 saturations 94% on room air, with a blood pressure of 134/66. FINAL DIAGNOSES: 1. Coronary artery disease, status post coronary artery bypass grafting x2 with reverse greater saphenous vein graft from the aorta to the first obtuse marginal and free right internal mammary artery from the aorta to the second obtuse marginal. 2. Obesity with a BMI of 39.7. 3. Hyponatremia. 4. Acute blood loss anemia, requiring 3 units of PRBC. 5. Chronic kidney disease, stage 2. 6. Hypertension. 7. Gastroesophageal reflux disease. SIGNIFICANT LABORATORY DATA: Sodium 136, potassium 3.8, creatinine 0.72. WBC 8.3 with hemoglobin of 10.1. Lowest hemoglobin was 6.0. FOLLOWUP: The patient will follow up with Dr. Milo Nettles in 1 week. She will follow up with Dr. Martinez and Dr. Mcgovern as scheduled. Job ID: [id number]
--- NOTE | 2018-08-02 04:39 | DIS ---
DATE OF ADMISSION: 07/23/2018 DATE OF DISCHARGE: 08/01/2018 PRINCIPAL DIAGNOSIS: Coronary artery disease. PROCEDURES PERFORMED: Cardiac catheterization, 07/23/2018. Coronary artery bypass grafting x2 with reverse greater saphenous vein graft from the aorta to the OM1 and free right internal mammary artery from the aorta to the OM2, 07/24/2018. HISTORY OF PRESENT ILLNESS AND HOSPITAL COURSE: The patient is a 68-year-old woman with cervical spine problems who self referred to a wallpaper printer for a cardiac evaluation prior to undergoing neck surgery. In her 40s, she had stenting procedures related to myocardial infarction and though asymptomatic, screening stress testing was abnormal and cardiac catheterization demonstrated a complex lesion in the circumflex at the takeoff of the first obtuse marginal. The severity of disease and its complexity were such that she was referred for bypass surgery. This was done utilizing saphenous vein for the OM1 and free mammary for the OM2. Her postoperative course was most notable for exacerbations of her back spasms and back pain. Once that was brought under control, her level of activity was greatly improved. Initially, her blood pressure was a bit marginal to allow for reinstitution of beta blockade. Beta blockade was gradually added in and she is now back up to her preoperative dose of Lopressor 50 mg b.i.d. As her blood pressures are still a little bit on the low side this morning at 111/64, her Lopressor dose is being left at that even though her heart rates are still commonly in the 80-90 range. I will plan on seeing her in the office in about 2 weeks. Job ID: [id number]
== END 2018-08-01 15:12 | disposition home health service (06) | DRG 233 ==
LOC: CCL 05:58 → 2SE 08:52 → CCU 07-24 11:10 → 2NO 07-31 17:26
PROVIDERS: ADMIT Internal Medicine Cardiovascular Disease; ATTEND Internal Medicine Cardiovascular Disease
PROC: 4A023N7 Measurement of Cardiac Sampling and Pressure, Left Heart, Percutaneous Approach (ICD-10-PCS; principal; 2018-07-23)
PROC: B2111ZZ Fluoroscopy of Multiple Coronary Arteries using Low Osmolar Contrast (ICD-10-PCS; 2018-07-23)
PROC: B2151ZZ Fluoroscopy of Left Heart using Low Osmolar Contrast (ICD-10-PCS; 2018-07-23)
PROC: 02100Z8 Bypass Coronary Artery, One Artery from Right Internal Mammary, Open Approach (ICD-10-PCS; 2018-07-24)
PROC: 021009W Bypass Coronary Artery, One Artery from Aorta with Autologous Venous Tissue, Open Approach (ICD-10-PCS; 2018-07-24)
PROC: 06BQ0ZZ Excision of Left Saphenous Vein, Open Approach (ICD-10-PCS; 2018-07-24)
PROC: 5A1221Z Performance of Cardiac Output, Continuous (ICD-10-PCS; 2018-07-24)
PROC: 30233N1 Transfusion of Nonautologous Red Blood Cells into Peripheral Vein, Percutaneous Approach (ICD-10-PCS; 2018-07-27)
DX: I25.10 Atherosclerotic heart disease of native coronary artery without angina pectoris (principal); J96.01 Acute respiratory failure with hypoxia; R65.10 Systemic inflammatory response syndrome (SIRS) of non-infectious origin without acute organ dysfunction; D62 Acute posthemorrhagic anemia; E87.1 Hypo-osmolality and hyponatremia; E78.00 Pure hypercholesterolemia, unspecified; I25.2 Old myocardial infarction; I12.9 Hypertensive chronic kidney disease with stage 1 through stage 4 chronic kidney disease, or unspecified chronic kidney disease; N18.2 Chronic kidney disease, stage 2 (mild); M54.2 Cervicalgia; G89.29 Other chronic pain; R00.0 Tachycardia, unspecified; E66.01 Morbid (severe) obesity due to excess calories; Z22.39 Carrier of other specified bacterial diseases; Z68.39 Body mass index [BMI] 39.0-39.9, adult; F17.290 Nicotine dependence, other tobacco product, uncomplicated; K21.9 Gastro-esophageal reflux disease without esophagitis; F32.9 Major depressive disorder, single episode, unspecified; Z95.5 Presence of coronary angioplasty implant and graft; Z79.82 Long term (current) use of aspirin; Z79.899 Other long term (current) drug therapy
CPT/HCPCS: 36415; 36416; 36430; 71045; 80048; 82805; 85025; 85610; 85730; 86850; 86900; 86901; 87040; 87070; 87077; 87086; 87186; 87205; 93005; 93010; 93458; 93798; 94002; 94150; 94760; 99152; 99153; C1769; J0360; J0690; J1642; J1644; J1815; J1885; J1940; J2001; J2150; J2250; J2405; J2440; J2704; J2720; J3010; J3370; J3475; J3480; J7050; P9016; P9045; Q4186; Q9967; S0017

== ENCOUNTER 2018-10-13 05:49 | Observation (INO) | payer MEDICARE ==
[2018-10-10 10:21] VITALS: BMI 36.6
[2018-10-13 06:39] LABS: #Basophils 0.1 thou/uL (0.0-0.2); #Eosinphils 0.2 thou/uL (0.0-0.7); #Lymphocytes 1.8 thou/uL (1.20-3.40); #Monocytes 0.7 thou/uL (0.11-0.59); #Neutrophils 7.8 thou/uL (1.40-6.50); %Basophils 0.7 % (0.0-1.0); %Eosinophils 2.1 % (0.0-10.0); %Lymphocytes 16.8 % (21.0-51.0); %Monocytes 6.8 % (0.0-10.0); %Neutrophils 73.6 % (42.0-75.0); Hemoglobin 13.7 g/dL (12.0-16.0); Mean Corpuscular Hemoglobin 31.2 pg (27.0-31.0); Mean Corpuscular Volume 94.5 fL (78.0-98.0); Mean Platelet Volume 8.8 fL (7.4-10.4); Platelet Count 237 thou/uL (130-400); Red Blood Cell (RBC) Count 4.39 mill/uL (4.20-5.40); White Blood Cell (WBC) Count 10.7 thou/uL (4.8-10.8)
[2018-10-13] MEDS ORDERED: Sodium Chloride 0.9% 10 ML ONE (07:26)
[2018-10-13] MEDS ORDERED: Famotidine/PF 20 mg/2ml Vial ONE (07:37)
[2018-10-13 07:38] LABS: Anion Gap 13 mmol/L (10-20); BUN (Urea Nitrogen) 17 mg/dL (9.8-20.1); Calc. Creatinine Clearance 92 mL/min (70-130); Calcium 9.8 mg/dL (7.8-10.44); Carbon Dioxide 26 mmol/L (23-31); Chloride 105 mmol/L (98-107); Estimated GFR-MDRD 67; Glucose 104 mg/dL (80-115); Potassium 3.8 mmol/L (3.5-5.1); Sodium 140 mmol/L (136-145)
[2018-10-13] MEDS ORDERED: Midazolam HCl 2 mg/2 ml Vial ONE (07:38)
[2018-10-13] MEDS ORDERED: Fentanyl 100 MCG/2 ML VIAL ONE ×3 (08:10→09:55)
[2018-10-13] MEDS ORDERED: Promethazine HCl 25 MG/ML VIAL SLOW IVP PRN (09:19)
[2018-10-13] MEDS ORDERED: Promethazine HCl 25 MG/ML VIAL IM PRN ×2 (09:19→11:43)
[2018-10-13] MEDS ORDERED: Ondansetron HCl/PF 4 MG/2 ML Vial IVP PRN (09:19)
[2018-10-13] MEDS ORDERED: HYDROmorphone 2 MG/ML VIAL ONE (09:35)
[2018-10-13] MEDS ORDERED: tiZANidine HCl 4 MG TAB ONE (10:30)
[2018-10-13] MEDS ORDERED: Promethazine HCl 25 MG/ML VIAL ONE (10:33)
[2018-10-13] MEDS ORDERED: Dexamethasone 20 MG/5 ML VIAL ONE (11:26)
[2018-10-13] MEDS ORDERED: Ketorolac Tromethamine 30 MG/ML VIAL ONE (11:26)
[2018-10-13] MEDS ORDERED: ePHEDrine 50 MG/ML VIAL ONE (11:26)
[2018-10-13] MEDS ORDERED: PHENYLEPHRINE-NS 100 MCG/ML 10 ML SYRINGE ONE (11:26)
[2018-10-13] MEDS ORDERED: Rocuronium Bromide 10 MG/ML (10ML VIAL) ONE (11:26)
[2018-10-13] MEDS ORDERED: Glycopyrrolate 0.2 MG/ML 5 ML SYRINGE ONE (11:26)
[2018-10-13] MEDS ORDERED: Metoclopramide HCl 10 MG/2 ML VIAL ONE (11:26)
[2018-10-13] MEDS ORDERED: Lidocaine 1% PF 5 ML VIAL ONE (11:26)
[2018-10-13] MEDS ORDERED: PROPOFOL 200 MG/20 ML VIAL ONE (11:26)
[2018-10-13] MEDS ORDERED: Ondansetron PF 4 MG/2 ML Vial ONE (11:26)
[2018-10-13] MEDS ORDERED: diphenhydrAMINE 25 MG CAP PO PRN ×2 (11:40→11:43)
[2018-10-13] MEDS ORDERED: HYDROcodone/Acetaminophen 10/325 mg Tablet PO PRN (11:43)
[2018-10-13] MEDS ORDERED: Promethazine HCl 12.5 MG SUPP PR PRN (11:43)
[2018-10-13] MEDS ORDERED: Ondansetron PF 4 MG/2 ML Vial IVP PRN (11:43)
[2018-10-13] MEDS ORDERED: Milk Of Magnesia 30 ML UDCUP PO PRN (11:43)
[2018-10-13] MEDS ORDERED: traMADol HCl 50 MG TAB PO PRN ×2 (11:43)
[2018-10-13] MEDS ORDERED: diphenhydrAMINE 50 MG/ML VIAL IVP PRN (11:43)
[2018-10-13] MEDS ORDERED: Promethazine 25 MG TAB PO PRN (11:43)
[2018-10-13] MEDS ORDERED: Morphine 4 MG/ML VIAL SLOW IVP PRN (11:43)
[2018-10-13] MEDS ORDERED: Mag-Al 1200 mg/1200 mg/30 ML UDCUP PO PRN (11:43)
[2018-10-13] MEDS ORDERED: Morphine 2 MG/ML SYRINGE SLOW IVP PRN (11:49)
[2018-10-13] MEDS ORDERED: Cepastat Lozenges 1 LOZ PO PRN (11:50)
[2018-10-13] MEDS ORDERED: Ibuprofen 800 MG TAB PO PRN (11:52)
[2018-10-13] MEDS: HYDROcodone/Acetaminophen 10/325 mg Tablet PO PRN ×2 (12:19→16:21)
[2018-10-13] MEDS: Sodium Chloride 0.9% 1,000 ML IV SCH (12:21)
--- NOTE | 2018-10-13 13:37 | OP ---
DATE OF PROCEDURE: 10/13/2018 FLIGHT OPERATION COORDINATOR: Kevin Gillis PA-C PROCEDURES PERFORMED: Anterior cervical diskectomy, C4 through C7, interbody arthrodesis, intervertebral biomechanical device, local morselized autograft, demineralized bone matrix, anterior titanium instrumentation C4 through C7. DESCRIPTION OF PROCEDURE: The patient was brought to the operating room and intubated. She was positioned supine with the head in modest extension on gel-filled donut. An incision was made in the right precervical area and dissected medial to the sternocleidomastoid muscle, identified the anterior cervical spinal, and the level was confirmed by x-ray. We debrided the anterior osteophytes, placed distraction across the disk space and using the operative microscope and microdissection techniques, completely decompressed the intervertebral discs from foramen to foramen and completely decompressing the neural elements. The bony endplates were then decorticated for the purpose of arthrodesis and appropriate-sized intervertebral biomechanical PEEK device was brought into the field, filled with demineralized bone matrix and local morselized autograft, and tapped in place securely at C4-C5, C5-C6, and C6-C7. Next, an anterior plate was brought into the field and secured to C4, C5, C6, and C7 using two 14-mm screws at each level. The wound was then extensively irrigated and MAC hemostasis was secured. The wound was closed in anatomic layers over drain. Job ID: [id number]
[2018-10-13] MEDS: CEFAZOLIN 2 GM in Premix Bag 1 BAG IVPB SCH ×2 (16:12→23:38)
[2018-10-13] MEDS: tiZANidine HCl 4 MG TAB PO PRN (16:21)
[2018-10-13] MEDS: Metoprolol Tartrate 50 MG TAB PO SCH (20:26)
[2018-10-13] MEDS ORDERED: Cyclobenzaprine 10 MG TAB PO SCH (21:00)
[2018-10-13] MEDS ORDERED: Atorvastatin Calcium 40 MG TAB PO SCH (21:00)
[2018-10-13] MEDS ORDERED: traZODone HCl 50 MG TAB PO SCH (21:00)
[2018-10-14] MEDS: Sodium Chloride 0.9% 1,000 ML IV SCH (04:33)
--- NOTE | 2018-10-14 05:25 | PDOC.PN ---
- Subjective Encounter Start Date: 10/14/18 Encounter Start Time: 04:00 Subjective: no chest pain or sob -: has throat pain, is able to swallow water -: has post neck pain this am - Objective Resuscitation Status - Order Detail: 10/13/18 11:38 Resuscitation Status Routine Resuscitation Status: FULL: Full Resuscitation MAR Reviewed: Yes Vital Signs & Weight: Vital Signs (12 hours) Temp Pulse Resp BP Pulse Ox 10/14/18 04:07 98.2 F 91 16 118/75 92 L 10/13/18 23:52 98.6 F 83 16 91/59 L 95 10/13/18 20:03 98.3 F 95 16 116/58 L 93 L Weight Weight 200 lb I&O: 10/12/18 10/13/18 10/14/18 06:59 06:59 06:59 Intake Total 1595 Output Total 90 Balance 1505 Result Diagrams: 10/13/18 06:28 10/13/18 07:08 Phys Exam - Physical Examination HEENT: PERRLA, sclera anicteric dry mucosa Neck: no JVD ant neck in dressing, rusty drain+ Respiratory: no wheezing, no rales Cardiovascular: RRR, no significant murmur Gastrointestinal: soft, non-tender, positive bowel sounds Musculoskeletal: no edema, pulses present Neurological: non-focal, moves all 4 limbs Psychiatric: normal affect, A&O x 3 Dx/Plan (1) s/p anterior cervical diskectomy Status: Acute Comment: C4-7, 10/13/2018 (2) CAD (coronary artery disease) Code(s): I25.10 - ATHSCL HEART DISEASE OF [place] CORONARY ARTERY W/O ANG PCTRS Status: Chronic Qualifiers: Coronary Disease-Associated Artery/Lesion type: bypass graft [place] vs. transplanted heart: [place] heart Associated angina: without angina Qualified Code(s): I25.810 - Atherosclerosis of coronary artery bypass graft(s) without angina pectoris (3) HTN (hypertension) Code(s): I10 - ESSENTIAL (PRIMARY) HYPERTENSION Status: Chronic Qualifiers: Hypertension type: essential hypertension Qualified Code(s): I10 - Essential (primary) hypertension (4) Dyslipidemia Code(s): E78.5 - HYPERLIPIDEMIA, UNSPECIFIED Status: Chronic (5) Obesity (BMI 30-39.9) Code(s): E66.9 - OBESITY, UNSPECIFIED Status: Chronic - Plan hemostable -: hold lisinopril/hctz for now, continue lopressor, lipitor -: on flexeril, norco, morphine prn for pain -: to mobilize per nsx adv -: duonebs prn, might need 1 or 2 doses steroids * . Review of Systems - Medications/Allergies Allergies/Adverse Reactions: Allergies Allergy/AdvReac Type Severity Reaction Status Date / Time eggplant Allergy "CAN'T Uncoded 10/10/18 10:22 BREATHE" Medications: Current Medications Hydrocodone Bitart/Acetaminophen ([place] 10/325) 1 tab PO Q4H PRN PRN Reason: PAIN (1-3) Hydrocodone Bitart/Acetaminophen ([place] 10/325) 2 tab PO Q4H PRN PRN Reason: PAIN (4-6) Last Admin: 10/13/18 16:21 Dose: 2 tab Al Hydroxide/Mg Hydroxide (Maalox) 30 ml PO Q4H PRN PRN Reason: Heartburn or Indigestion Atorvastatin Calcium (Lipitor) 80 mg PO HS [place] Last Admin: 10/13/18 20:26 Dose: 80 mg Cyclobenzaprine HCl (Flexeril) 10 mg PO HS [place] Last Admin: 10/13/18 20:26 Dose: 10 mg Diphenhydramine HCl (Benadryl) 25 mg PO HS PRN PRN Reason: Allergies Last Admin: 10/14/18 02:33 Dose: 25 mg Diphenhydramine HCl (Benadryl) 25 mg PO Q6H PRN PRN Reason: Itching Diphenhydramine HCl (Benadryl) 25 mg IVP Q6H PRN PRN Reason: Itching Lisinopril/HCTZ (Prinizide 10-12.5) 1 tab PO DAILY [facility] Sodium Chloride (Normal Saline 0.9%) 1,000 mls @ 75 mls/hr IV .[id number] [facility] Last Admin: 10/14/18 04:33 Dose: Not Given Cefazolin Sodium/Dextrose 2 gm (/ Device) 50 mls @ 100 mls/hr IVPB 0000,0800, 1600 [facility] Last Admin: 10/13/18 23:38 Dose: 50 mls Ibuprofen (Motrin) 800 mg PO TIDPRN PRN PRN Reason: Mild Pain (1-3) Magnesium Hydroxide (Milk Of Magnesium) 30 ml PO Q12H PRN PRN Reason: Constipation Metoprolol Tartrate (Lopressor) 50 mg PO BID [facility] Last Admin: 10/13/18 20:26 Dose: 50 mg Morphine Sulfate (Morphine) 2 mg SLOW IVP Q1H PRN PRN Reason: moderate brekthrough pain Last Admin: 10/14/18 05:17 Dose: 2 mg Morphine Sulfate (Morphine) 4 mg SLOW IVP Q1H PRN PRN Reason: SEVERE BREAKTHROUGH PAIN Ondansetron HCl (Zofran) 4 mg IVP Q24H PRN PRN Reason: Nausea/Vomiting Last Admin: 10/13/18 22:29 Dose: 4 mg Pantoprazole Sodium (Protonix) 40 mg PO [facility] Last Admin: 10/13/18 20:26 Dose: 40 mg Promethazine HCl (Phenergan) 12.5 mg IM Q4H PRN PRN Reason: Nausea/Vomiting Promethazine HCl (Phenergan) 12.5 mg PO Q4H PRN PRN Reason: Nausea/Vomiting Promethazine HCl (Phenergan Suppository) 12.5 mg UT Q4H PRN PRN Reason: Nausea/Vomiting Sertraline HCl ([facility]oloft) [facility] Sodium Chloride (Flush - Normal Saline) 10 ml IVF Q12HR [facility] Last Admin: 10/13/18 20:30 Dose: 10 ml Sodium Chloride (Flush - Normal Saline) 10 ml IVF PRN PRN PRN Reason: Saline Flush Throat Lozenges (Cepastat Lozenges) 1 sangita PO PRN PRN PRN Reason: Sore Throat Tizanidine HCl (Zanaflex) 4 mg PO Q6H PRN PRN Reason: MUSCLE SPASM Last Admin: 10/13/18 16:21 Dose: 4 mg Tramadol HCl (Ultram) 50 mg PO Q6H PRN PRN Reason: PAIN (1-3) Tramadol HCl (Ultram) 100 mg PO Q6H PRN PRN Reason: PAIN (4-6) Last Admin: 10/13/18 22:29 Dose: 100 mg Trazodone HCl (Desyrel) 50 mg PO [facility] Last Admin: 10/13/18 20:26 Dose: 50 mg
[2018-10-14 06:08] LABS: #Eosinphils 0.1 thou/uL (0.0-0.7); #Lymphocytes 1.9 thou/uL (1.20-3.40); #Neutrophils 8.8 thou/uL (1.40-6.50); %Basophils 0.4 % (0.0-1.0); %Eosinophils 0.6 % (0.0-10.0); %Lymphocytes 16.3 % (21.0-51.0); %Monocytes 8.1 % (0.0-10.0); %Neutrophils 74.6 % (42.0-75.0); Hemoglobin 11.2 g/dL (12.0-16.0); Mean Corpuscular HGB CONC 32.2 g/dL (32.0-36.0); Mean Corpuscular Volume 96.3 fL (78.0-98.0); Mean Platelet Volume 8.3 fL (7.4-10.4); Platelet Count 168 thou/uL (130-400); RBC Distribution Width 14.9 % (11.5-14.5); Red Blood Cell (RBC) Count 3.62 mill/uL (4.20-5.40); White Blood Cell (WBC) Count 11.8 thou/uL (4.8-10.8)
[2018-10-14 06:26] LABS: ALT (SGPT) 13 U/L (8-55); AST (SGOT) 23 U/L (5-34); Albumin 3.4 g/dL (3.4-4.8); Alkaline Phosphatase 72 U/L (40-150); Anion Gap 12 mmol/L (10-20); BUN (Urea Nitrogen) 16 mg/dL (9.8-20.1); Bilirubin, Total 0.3 mg/dL (0.2-1.2); Calc. Creatinine Clearance 83 mL/min (70-130); Calcium 8.5 mg/dL (7.8-10.44); Carbon Dioxide 24 mmol/L (23-31); Chloride 105 mmol/L (98-107); Estimated GFR-MDRD 59; Globulin 3.1 g/dL (2.4-3.5); Glucose 91 mg/dL (80-115); Protein, Total 6.5 g/dL (6.0-8.3); Sodium 137 mmol/L (136-145)
[2018-10-14 07:40] VITALS: TEMP 98.3
[2018-10-14] MEDS: HYDROcodone/Acetaminophen 10/325 mg Tablet PO PRN (08:23)
[2018-10-14] MEDS: CEFAZOLIN 2 GM in Premix Bag 1 BAG IVPB SCH (08:33)
[2018-10-14] MEDS: tiZANidine HCl 4 MG TAB PO PRN (08:39)
[2018-10-14] MEDS ORDERED: Lisinopril/Hydrochlorothiazide 10 mg/12.5 mg Tablet PO SCH (09:00)
[2018-10-14] MEDS: Metoprolol Tartrate 50 MG TAB PO SCH (10:52)
[2018-10-14 10:54] VITALS: BP 115/72
--- NOTE | 2018-10-14 10:59 | DIS ---
DATE OF ADMISSION: 10/13/2018 DATE OF DISCHARGE: 10/14/2018 HOSPITAL COURSE: The patient is a 68-year-old female, status post C4-C7 ACDF. Following the surgery, she was transitioned to the Med/Surg floor, where her pain has been well controlled with p.o. medications, she is tolerating regular diet, and she is voiding appropriately. The patient does have some hoarseness to her voice, but I anticipate this will improve in time. She did have ADELA drain placed intraoperatively and output has trended down nicely with only 30 mL out overnight. We will plan to remove the ADELA drain and dismiss the patient to home. I have discussed home care precautions. We will follow up with the patient in 2 weeks. Job ID: [id number]
== END 2018-10-14 11:25 | disposition home or self-care (01) ==
LOC: SDC 05:49 → SJJU 10:52
PROVIDERS: ADMIT Neurological Surgery; ATTEND Neurological Surgery
PROC: 0RG20A0 Fusion of 2 or more Cervical Vertebral Joints with Interbody Fusion Device, Anterior Approach, Anterior Column, Open Approach (ICD-10-PCS; principal; 2018-10-13)
PROC: 0RT30ZZ Resection of Cervical Vertebral Disc, Open Approach (ICD-10-PCS; 2018-10-13)
DX: M47.22 Other spondylosis with radiculopathy, cervical region (principal); I25.10 Atherosclerotic heart disease of native coronary artery without angina pectoris; I10 Essential (primary) hypertension; E78.5 Hyperlipidemia, unspecified; G89.29 Other chronic pain; F32.9 Major depressive disorder, single episode, unspecified; F41.9 Anxiety disorder, unspecified; E66.9 Obesity, unspecified; Z68.36 Body mass index [BMI] 36.0-36.9, adult; Z79.899 Other long term (current) drug therapy; Z88.8 Allergy status to other drugs, medicaments and biological substances; Z91.018 Allergy to other foods; Z98.1 Arthrodesis status; Z98.890 Other specified postprocedural states
CPT/HCPCS: 20930; 20936; 22551; 22552 ×2; 22846; 22853 ×3; 76000; 80048; 80053; 85025 ×2; 93005; 94640; 96361; 96365; 96366 ×2; 96375 ×2; 97139; C1713 ×2; C1776; G0378; 36415; 93010; J0131; J0690; J1100; J1170; J1885; J2001; J2250; J2270; J2405; J2550; J2704; J2765; J3010; J3490; J7620; Q0163; S0028

== ENCOUNTER 2018-10-16 00:42 | Observation (INO) | payer MEDICARE ==
[2018-10-16 01:13] LABS: #Eosinphils 0.2 thou/uL (0.0-0.7); #Lymphocytes 0.8 thou/uL (1.20-3.40); #Monocytes 0.8 thou/uL (0.11-0.59); %Basophils 0.3 % (0.0-1.0); %Eosinophils 1.2 % (0.0-10.0); %Lymphocytes 6.1 % (21.0-51.0); %Monocytes 6.5 % (0.0-10.0); %Neutrophils 85.9 % (42.0-75.0); Hemoglobin 11.3 g/dL (12.0-16.0); Mean Corpuscular HGB CONC 31.9 g/dL (32.0-36.0); Mean Corpuscular Hemoglobin 30.5 pg (27.0-31.0); Mean Corpuscular Volume 95.7 fL (78.0-98.0); Mean Platelet Volume 8.1 fL (7.4-10.4); Platelet Count 183 thou/uL (130-400); RBC Distribution Width 14.7 % (11.5-14.5); White Blood Cell (WBC) Count 12.8 thou/uL (4.8-10.8)
[2018-10-16 01:25] LABS: ALT (SGPT) 9 U/L (8-55); AST (SGOT) 18 U/L (5-34); Albumin 3.5 g/dL (3.4-4.8); Alkaline Phosphatase 85 U/L (40-150); Anion Gap 11 mmol/L (10-20); BUN (Urea Nitrogen) 15 mg/dL (9.8-20.1); Bilirubin, Total 0.5 mg/dL (0.2-1.2); Calc. Creatinine Clearance 0 mL/min (70-130); Calcium 9.4 mg/dL (7.8-10.44); Carbon Dioxide 27 mmol/L (23-31); Chloride 101 mmol/L (98-107); Estimated GFR-MDRD 82; Globulin 3.6 g/dL (2.4-3.5); Glucose 116 mg/dL (80-115); Potassium 4.2 mmol/L (3.5-5.1); Protein, Total 7.1 g/dL (6.0-8.3); Sodium 135 mmol/L (136-145)
[2018-10-16] MEDS ORDERED: Furosemide 40 MG/4 ML VIAL ONE ×2 (03:27→12:53)
[2018-10-16] MEDS ORDERED: Ondansetron ODT 4 MG TAB SL PRN (06:22)
[2018-10-16] MEDS ORDERED: Acetaminophen 325 MG TAB PO PRN ×2 (06:22→12:18)
[2018-10-16] MEDS ORDERED: Ondansetron PF 4 MG/2 ML Vial IVP PRN (06:22)
--- NOTE | 2018-10-16 07:54 | CT ---
PRELIMINARY REPORT/[facility]/EMERGENCY AFTER HOURS PROCEDURE: EXAM: CT Angiography Chest With Contrast EXAM DATE/TIME: 10/16/2018 1:09 AM CLINICAL HISTORY: 68 years old, female; Anterior cervical fusion 4 days ago, since then - increased SOB, difficulty swallowing. Sudden SOB at home. On EMS arrival to scene, pt's o2 sats in low 80s on ra, improved with admin o2 via nc TECHNIQUE: Imaging protocol: Axial computed tomographic angiography images of the chest with intravenous contrast using CT angiography protocol. Coronal and sagittal reformatted images were created and reviewed. 3D rendering: MIP reconstructed images were created and reviewed. COMPARISON: No relevant prior studies available. FINDINGS: Pulmonary arteries: No evidence of pulmonary embolism. Great vessels off aortic arch: Normal height and variant retrotracheal origin of the right subclavian artery from the aortic arch. Normal caliber thoracic aorta without dissection or aneurysm. Aorta: See Great Vessels Off Aortic Arch Finding. Lungs: No alveolar infiltrate. Areas of linear parenchymal scarring or subsegmental collapse / atelectasis in each lung. Pleural space: Trace right pleural fluid collection. No pneumothorax. Heart: No RV dysfunction. No pericardial effusion. Lymph nodes: Unremarkable. No enlarged lymph nodes. Bones/joints: Prior median sternotomy. Spinal degenerative changes. Old fracture of the right first posterior rib. Soft tissues: Bilateral breast implants with peripheral capsular calcification. Soft tissue edema in the lower neck region in this patient with recent cervical spine surgery. IMPRESSION: 1. No evidence of pulmonary embolism. 2. No alveolar infiltrate. 3. Areas of linear parenchymal scarring or subsegmental collapse / atelectasis in each lung. 4. Trace right pleural fluid collection. Thank you for allowing us to participate in the care of your patient. Dictated and Authenticated by: Magdaleno Garcia MD 10/16/2018 2:07 AM Central Time ([place] & [place]) FINAL REPORT CT ARTERIOGRAM CHEST WITH IV CONTRAST AND 3D IMAGING PERFORMED ON AN EMERGENCY BASIS: Date: 10/16/18 Time: 0115 hours HISTORY: Dyspnea. Difficulty swallowing. Recent neck surgery. FINDINGS: I agree with the preliminary report by Dr. Garcia from [facility]. No CT evidence of pulmonary embolus. Aberrant origin of the right subclavian artery. Bilateral breast implants. Minimal pleural fluid. Linear parenchymal opacity at the inferior aspect of each lung may represent a telectasis and/or scarring. Code QA. Transcribed Date/Time: 10/16/2018 8:39 AM
--- NOTE | 2018-10-16 07:57 | CT ---
PRELIMINARY REPORT/[facility]/EMERGENCY AFTER HOURS PROCEDURE: EXAM: CT Neck With Contrast EXAM DATE/TIME: 10/16/2018 1:09 AM CLINICAL HISTORY: 68 years old, female; Anterior cervical fusion 4 days ago, since then - increased SOB, difficulty swallowing. Sudden SOB at home. On EMS arrival to scene, pt's o2 sats in low 80s on ra, improved with admin o2 via nc TECHNIQUE: Imaging protocol: Axial computed tomography images of the neck with intravenous contrast. Coronal and sagittal reformatted images were created and reviewed. COMPARISON: No relevant prior studies available. FINDINGS: Nasopharynx: Normal. Oropharynx: Normal. No significant tonsillar enlargement. Hypopharynx: Normal. Larynx: Normal. Normal epiglottis. Retropharyngeal space: Normal. Submandibular/Parotid glands: Normal. Glands are normal in size. Thyroid: Normal. No enlarged or calcified nodules. Lymph nodes: Normal. No lymphadenopathy. Trachea: Anterior deviation of the trachea at the C3 through C5 levels. Lungs: No infiltrate within either superior lung. Posterior right lung linear subsegmental collapse. Vasculature: Retrotracheal origin of the right subclavian artery from the aortic arch. Carotid artery calcification. Bones/joints: Status post recent anterior cervical fusion involving the C4 through C7 levels. Soft tissues: Prior median sternotomy. Anterior cervical soft tissue edema with a few scattered small postsurgical air collections. Possible prevertebral collection / hematoma in the C3 through C5 region, greater on the right than on the left. IMPRESSION: 1. Status post recent anterior cervical fusion involving the C4 through C7 levels with associated sof t tissue edema. A few residual small postsurgical air collections within the soft tissues. 2. Possible prevertebral collection / hematoma in the C3 through C5 region, greater on the right than on the left. Anterior deviation of the trachea at the C3 through C5 levels - but airway is patent.. Thank you for allowing us to participate in the care of your patient. Dictated and Authenticated by: Magdaleno Garcia MD 10/16/2018 2:24 AM Central Time ([place] & [place]) FINAL REPORT CT NECK WITH IV CONTRAST PERFORMED ON AN EMERGENCY BASIS: Date: 10/16/18 Time: 0117 hours HISTORY: Neck pain. Difficulty swallowing. Cervical spine surgery 4 days ago. FINDINGS: I agree with the preliminary report by Dr. Garcia from [facility]. Recent postoper ative changes of the cervical spine including anterior fusion at the C4-7 levels. Associated soft tissue swelling with fluid collection anterior to the postoperative level, right greater than left. A irway is patent, although there may be compression of the upper esophagus. Findings of the upper chest are better detailed on corresponding CT arteriogram chest performed on same date. Code QA. Transcribed Date/Time: 10/16/2018 8:44 AM
[2018-10-16] MEDS ORDERED: Dexamethasone 10 MG/ML VIAL ONE (09:08)
[2018-10-16] MEDS ORDERED: Morphine 2 MG/ML SYRINGE ONE (10:00)
--- NOTE | 2018-10-16 10:47 | CON ---
DATE OF CONSULTATION: HISTORY OF PRESENT ILLNESS: The patient is a 68-year-old female with a past medical history of coronary artery disease, hypertension, and hyperlipidemia with multiple prior spinal surgeries, who underwent C4 through C7 ACDF by our service on 10/13/2018. Following the surgery, she was transitioned to the med/surg floor, where her pain was well controlled with p.o. medications, she was tolerating a regular diet with only mild dysphagia and mild hoarseness, and she was voiding appropriately. Her ADELA drain was removed on postoperative day 1, and the patient was feeling well and discharged to home. The patient reports that last night, she became increasingly more short of breath as well as had some difficulty swallowing and some elevation of her blood pressure and was therefore brought by EMS to the Emergency Department for further evaluation. Upon arrival, the patient was found to be hypertensive, mildly tachycardic. A CTA of her chest was notable for bilateral atelectasis as well as a trace amount of pleural fluid. No PE was noted. CT soft tissue neck was notable for a postsurgical fluid collection, which Radiology thought could be concerning for postop hematoma. In the Emergency Department, the patient was able to tolerate a small amount of p.o. liquids and was sucking on ice chips upon my arrival to see her. Her lab work was also notable for a significantly elevated BNP greater than a 1000. Neurosurgery was consulted for further management and review of her CT soft tissue neck findings. Medicine was also consulted for management of her hypertension and what appears to be acute CHF exacerbation. PAST MEDICAL HISTORY: Coronary artery disease, hypertension, hyperlipidemia, depression, anxiety, and chronic neck pain. PAST SURGICAL HISTORY: Cardiac stents, prior lumbar fusion L2-S1 in 2012, and recent C4 through C7 ACDF on 10/13/2018. FAMILY HISTORY: Noncontributory. SOCIAL HISTORY: The patient does not smoke, drink, or use any drugs. ALLERGIES: SHE HAS NO KNOWN DRUG ALLERGIES. REVIEW OF SYSTEMS: Per HPI. PHYSICAL EXAMINATION: GENERAL: On exam in the Emergency Department, the patient is sitting up comfortably. No acute distress. She is 100% on room air. HEENT: Head, normocephalic and atraumatic. Eyes, PERRLA. Extraocular movements intact. ENT, oral mucosa is pink, intact, and moist. She has a slightly hoarse voice. She is sucking on ice chips and tolerating without any difficulty. NECK: Nontender to palpation. Her incision is soft, dry, and intact. She is tender over the posterior cervical spine. CARDIAC: Regular rate and rhythm. PULMONARY: She has symmetric chest expansion. No evidence of dyspnea at this time. MUSCULOSKELETAL: She has free active range of motion of all extremities. No focal motor weakness or reflex asymmetry. NEURO: A and O x4. No focal neurologic deficits are appreciated. ASSESSMENT: Postoperative dysphagia and shortness of breath, which likely represent congestive heart failure exacerbation and atelectasis. PLAN: I have reviewed her CT soft tissue neck findings. At this point, I feel that this represents normal postoperative findings and less likely represent postop hematoma formation. She is able to tolerate a small amount of p.o. fluids and thickened liquids. She has a hoarse voice, but she is not having any respiratory difficulty at this time. We will plan to treat her postoperative dysphagia with 10 mg of IV Decadron in the Emergency Department at this time. With regard to her CHF exacerbation as well as atelectasis, we will defer to the medical team. She is being admitted primarily by Medicine, but we will continue to follow along. Job ID: [id number]
[2018-10-16] MEDS ORDERED: ISOVUE-370 76%-LOCM 1 ML ONE (11:27)
[2018-10-16] MEDS ORDERED: Bisacodyl 10 MG SUPP PR PRN (12:18)
[2018-10-16] MEDS ORDERED: Guaifenesin DM 100-10/5 ML UDCUP PO PRN (12:18)
[2018-10-16] MEDS ORDERED: HYDROcodone/Acetaminophen 10/325 mg Tablet ONE (12:53)
[2018-10-16] MEDS: Furosemide 40 MG/4 ML VIAL SLOW IVP SCH (12:59)
[2018-10-16] MEDS: HYDROcodone/Acetaminophen 10/325 mg Tablet PO PRN (12:59)
--- NOTE | 2018-10-16 13:18 | HP ---
REASON FOR ADMISSION: CHF exacerbation. HISTORY OF PRESENTING ILLNESS: The patient gives history of having trouble swallowing and worsening shortness of breath. The patient also describes as she is drinking water, soda, or tea, this would pool in her throat and had to vomit to feel better. She has had significant history of anterior cervical diskectomy done on 10/13/2018, by Dr. Ho. The patient says that she has had coughing spells and has had sinus drainage as well, all of which compounded her issues. She checked her blood pressure, it was 198/106. She has been off lisinopril with hydrochlorothiazide from discharge. The patient was on 2 to 3 doses of steroids while she was hospitalized here. No complaints of fever, palpitations, or PND. PAST MEDICAL AND SURGICAL HISTORY: History of coronary artery disease with prior CABG done on 07/24/2018, for 2-vessel disease, prior ejection fraction was 60%; hypertension; dyslipidemia; obesity; anterior cervical diskectomy for C4 through C7, done by Dr. Ho on 10/13/2018; breast augmentation; prior history of placenta previa with her last with bladder repair. She has had x3. Dupuytren contracture repair on the right hand. CURRENT MEDICATIONS: 1. The patient is on aspirin 81 mg p.o. daily. 2. [place] p.r.n. for pain. 3. Cyclobenzaprine 10 mg p.o. at bedtime. 4. Protonix 40 mg p.o. at bedtime. 5. Lisinopril with hydrochlorothiazide 10/12.5 mg was held. 6. Sertraline 200 mg p.o. daily. 7. Tizanidine 4 mg p.o. 4 times daily p.r.n. 8. Trazodone 50 mg p.o. at bedtime. 9. Atorvastatin 80 mg p.o. at bedtime. 10. Metoprolol tartrate 50 mg twice daily. ALLERGIES: TO EGGPLANT. PERSONAL HISTORY: Smokes five cigarettes a day. States her vaping instrument broke out. Does not abuse alcohol or drugs. FAMILY HISTORY: Mother is living and is 85 years old. Father at the age of 82 years, he has had history of ID and COPD. The patient takes care of her sister and they both live together. CODE STATUS: Full. Power of attorney recruiter is her daughter, Ms. Lauranne White. PHYSICAL EXAMINATION: GENERAL: The patient is a 68-year-old female, who is currently not in any acute distress. VITAL SIGNS: Blood pressure 136/70, pulse 86 per minute, respiratory rate 18 per minute, temperature 98.1 degrees Fahrenheit, saturating 93% on room air. NECK: Supple. No elevated JVD. HEENT: Eyes; extraocular muscles intact. Her recent surgical scar on the anterior neck appears to be clean. Oral cavity, mucous membranes are dry. No exudates or congestion. CARDIOVASCULAR: S1 and S2 heard. Regular rhythm. RESPIRATORY: Scattered rhonchi plus bilateral, basal rales plus bilateral. ABDOMEN: Soft bowel sounds heard. No tenderness, rigidity, or guarding. EXTREMITIES: No peripheral edema or calf tenderness. VASCULAR: Peripheral pulses, 1+ bilateral. No ischemic ulcerations or gangrene. CENTRAL NERVOUS SYSTEM: No gross focal deficits noted. The patient is alert, awake, oriented well. PSYCHIATRIC: The patient's mood is euthymic. No hallucinations or delusions. LABORATORY DATA: White count of 12, hemoglobin and hematocrit 11 and 35, platelet count 183, MCV is 95 with 85% neutrophils. Sodium 135, serum bicarb 27, BUN 15, creatinine 0.7, serum glucose 116. Liver enzymes within normal limits. First set of cardiac enzymes are negative. BNP is 1121. Albumin is 3.5. CT neck soft tissue with contrast done shows status post recent anterior cervical fusion involving C4 through C7 with associated soft tissue edema, small postsurgical air collections within the soft tissues, possible prevertebral collection/hematoma in the C3 through C5 region, greater on the right than left, anterior deviation of the trachea at the C3 through C5 levels, but airway is patent. CT angio chest done shows no evidence of PE. There are no infiltrates seen. Trace right pleural fluid collection. CLINICAL IMPRESSION AND PLAN: 1. The patient will be under observation on telemetry for acute congestive heart failure exacerbation, likely diastolic dysfunction. Her prior ejection fraction was 60%. She has had recent anterior cervical neck diskectomy done and has had difficulty swallowing. She was trying to drink more liquids as she could not swallow solids. She will be on Lasix 40 mg IV q.12 hourly. Neurosurgery PA, Ms. Jesenia Wilson, has evaluated the patient here in the ER. The patient has had normal postop changes. She was given 10 mg IV Decadron in the ER. We will obtain a repeat echo for left ventricular function. Her last ejection fraction evaluation was prior to coronary artery bypass graft. She is on full-liquid diet per Neurosurgery advice. If the patient were not to recover by tomorrow evening, she will be switched over to inpatient status. PT evaluation will be requested for ambulation. We will continue her aspirin, Lipitor, Flexeril, [place], metoprolol tartrate, and Zoloft along with trazodone as before. 2. Lisinopril with hydrochlorothiazide will be held for now. Once active diuresis is done, we will switch her back to her home dose of lisinopril with hydrochlorothiazide. Job ID: [id number] [id number]
[2018-10-16 15:04] VITALS: BMI 37.3
[2018-10-16] MEDS: tiZANidine HCl 4 MG TAB PO PRN (16:22)
--- NOTE | 2018-10-16 18:53 | CON ---
DATE OF CONSULTATION: 10/16/2018 REASON FOR CONSULTATION: Shortness of breath. HISTORY OF PRESENT ILLNESS: Ms. Nicole is a very pleasant, 68-year-old, white female, patient of Dr. Josesito Mcgovern, who comes into the hospital for shortness of breath. She has a significant history of coronary artery disease. She came in for preoperative evaluation to see Dr. Mcgoevrn. She did not pass her stress test and eventually had a heart catheterization that showed a severe circumflex disease in a left dominant circulation. She underwent 2-vessel CABG with a vein graft to an OM1 and a free right internal mammary from the aorta to the OM2. She did very well. She states that for years, she has been having episodes of shortness of breath. She feels that she cannot take deep breaths. This did not really change after her bypass surgery, but she had laminectomy just done 3 days ago, and she states that since her laminectomy, she has felt significant exacerbation of the symptoms. She denies any chest pain, tightness, or pressure. Only that shortness of breath. She states that it is more of an inability to take the air in. She is also having a lot of difficulty with her voice since the surgery, and on admission, she was found to have an elevated BNP, so she was admitted for heart failure, and Cardiology is being consulted for this. Her blood pressure on arrival was 198/106. She has been off her lisinopril and hydrochlorothiazide since she was discharged from the laminectomy. She also had a few doses of steroids given while she was hospitalized to decrease inflammation. PAST MEDICAL HISTORY: 1. Coronary artery disease, status post CABG as above. 2. Diastolic heart failure. 3. Hyperlipidemia. 4. Obesity. PAST SURGICAL HISTORY: 1. Anterior cervical diskectomy, C4 through C7 done by Dr. Ho just 3 days ago. 2. Breast augmentation. 3. Placenta previa on her last with bladder repair. 4. x3. 5. Dupuytren contracture repair of the right hand. OUTPATIENT MEDICATIONS: 1. Aspirin 81 a day. 2. [place] p.r.n. 3. Cyclobenzaprine. 4. Protonix 40 a day. 5. Lisinopril/hydrochlorothiazide 10/12.5 daily; however, she has not been on this since she had her cervical diskectomy. 6. Sertraline. 7. Tizanidine. 8. Trazodone. 9. Atorvastatin 80 mg at bedtime. 10. Metoprolol tartrate 50 mg b.i.d. ALLERGIES: EGGPLANT MAKES HER SHORT-WINDED. SOCIAL HISTORY: Smokes 5 cigarettes a day, used to vape. No alcohol or drugs. FAMILY HISTORY: Noncontributory. REVIEW OF SYSTEMS: A 12-point review of systems was done and was all negative unless stated in the history of present illness. PHYSICAL EXAMINATION: VITAL SIGNS: Temperature 98.2, pulse 107, respiratory rate 12, saturating 99% on room air, blood pressure 140/72. GENERAL: Awake, alert, oriented x3, in no distress. HEENT: Normocephalic and atraumatic. NECK: She did not test if it is supple or not given her recent surgery. She has an anterior scar from her recent diskectomy. LUNGS: Clear to auscultation. CARDIOVASCULAR: S1 and S2. No S3 or S4. There is a grade 2/6 systolic murmur at the right upper sternal border. ABDOMEN: Soft. Positive bowel sounds. EXTREMITIES: Trace edema. SKIN: Warm and dry. LABORATORY DATA: Laboratory work was reviewed. CBC with white count of 12, hemoglobin of 11, hematocrit of 35, platelet count of 183. Chemistries are unremarkable except for glucose of 116. Her BNP was 1121. Troponin is negative x1. Albumin is 3.5. EKG was reviewed. CTs of the soft neck and thorax were reviewed. ASSESSMENT: 1. [id number] diastolic heart failure. 2. Hypertension. 3. Coronary artery disease, status post coronary artery bypass grafting x2, stable at this time. No acute coronary syndrome. 4. Hoarse voice, likely some edema from her recent instrumentation of her cervical neck. PLAN: 1. Agree with IV diuresis. Continue for now. She does not feel a significant improvement in her symptoms after she has diuresed some. 2. We will try to get her a little bit more euvolemic, and once if her creatinine starts to creep up, then I would hold off on diuresis, and this may have something to do with her inflammation on her neck. Currently, Neurosurgery is involved in the case, and they do not think there is anything too serious going on as far as possible hematoma around the neck is concerned. She already received a dose of Decadron as well to reduce the inflammation. 3. We would restart some of her blood pressure medications. Currently, her blood pressure is 140/72, so it should not be too difficult to control for now. Thank you for letting us to participate in the care of your patient. Dr. Mcgovern is primary aircraft structural fitter, who will follow up in the morning. Job ID: [id number]
[2018-10-16] MEDS: traZODone HCl 50 MG TAB PO SCH (21:31)
[2018-10-16] MEDS: Atorvastatin Calcium 40 MG TAB PO SCH (21:31)
[2018-10-16] MEDS: Metoprolol Tartrate 50 MG TAB PO SCH (21:32)
[2018-10-16] MEDS: Cyclobenzaprine 10 MG TAB PO SCH (21:33)
[2018-10-16] MEDS: Famotidine 20 MG TAB PO SCH (21:33)
[2018-10-17 04:40] LABS: #Lymphocytes 1.4 thou/uL (1.20-3.40); #Monocytes 1.2 thou/uL (0.11-0.59); #Neutrophils 10.6 thou/uL (1.40-6.50); %Basophils 0.1 % (0.0-1.0); %Eosinophils 0.2 % (0.0-10.0); %Lymphocytes 10.4 % (21.0-51.0); %Neutrophils 80.4 % (42.0-75.0); Hemoglobin 12.5 g/dL (12.0-16.0); Mean Corpuscular Hemoglobin 30.5 pg (27.0-31.0); Mean Corpuscular Volume 95.3 fL (78.0-98.0); Mean Platelet Volume 7.8 fL (7.4-10.4); Platelet Count 232 thou/uL (130-400); RBC Distribution Width 14.8 % (11.5-14.5); Red Blood Cell (RBC) Count 4.09 mill/uL (4.20-5.40); White Blood Cell (WBC) Count 13.2 thou/uL (4.8-10.8)
[2018-10-17 05:02] LABS: Anion Gap 13 mmol/L (10-20); BUN (Urea Nitrogen) 26 mg/dL (9.8-20.1); Calc. Creatinine Clearance 90 mL/min (70-130); Calcium 10.2 mg/dL (7.8-10.44); Carbon Dioxide 32 mmol/L (23-31); Chloride 98 mmol/L (98-107); Estimated GFR-MDRD 63; Glucose 115 mg/dL (80-115); Potassium 3.9 mmol/L (3.5-5.1); Sodium 139 mmol/L (136-145)
[2018-10-17] MEDS: Furosemide 40 MG/4 ML VIAL SLOW IVP SCH ×3 (07:16→13:32)
[2018-10-17] MEDS: HYDROcodone/Acetaminophen 10/325 mg Tablet PO PRN ×2 (07:42→13:35)
[2018-10-17] MEDS: tiZANidine HCl 4 MG TAB PO PRN ×2 (07:43→11:32)
[2018-10-17] MEDS: Enoxaparin Sodium 40 MG/0.4 ML SYRINGE SC SCH (07:45)
[2018-10-17] MEDS: Metoprolol Tartrate 50 MG TAB PO SCH ×2 (07:45→20:41)
[2018-10-17] MEDS: Famotidine 20 MG TAB PO SCH ×2 (07:46→20:41)
[2018-10-17] MEDS: Aspirin 81 mg Enteric Coated Tablet PO SCH (07:46)
--- NOTE | 2018-10-17 09:45 | PRG ---
DATE OF SERVICE: 10/17/2018 SUBJECTIVE: The patient is much improved today on her exam. She is walking up and down the hallway, smiling, no acute distress. She reports improvement in her swallowing and breathing. OBJECTIVE: She has free active range of motion of all extremities. No focal motor weakness. No reflex asymmetry. Her incision is dry and intact. IMPRESSION AND PLAN: The patient is much improved following diuresis and Decadron. We will continue to defer to the medical team with regard to her ongoing medical issues. I will arrange physical therapy with home health at discharge to [facility] to discuss this with Case Management. Job ID: [id number]
--- NOTE | 2018-10-17 14:14 | PDOC.PN ---
- Subjective Encounter Start Date: 10/17/18 Encounter Start Time: 09:40 Subjective: still has exertional sob -: has trouble swallowing liq, says solids are easy to swallow -: no chest pain - Objective Resuscitation Status - Order Detail: 10/16/18 12:14 Resuscitation Status Routine Resuscitation Status: FULL: Full Resuscitation MAR Reviewed: Yes Vital Signs & Weight: Vital Signs (12 hours) Temp Pulse Pulse Pulse Resp BP BP 10/17/18 13:20 78 16 10/17/18 11:00 98.6 F 76 14 10/17/18 10:41 78 92 91/45 L 139/63 10/17/18 07:15 97.8 F 88 14 10/17/18 06:39 81 16 10/17/18 04:12 97.5 F L 83 21 H BP Pulse Ox Pulse Ox Pulse Ox 10/17/18 13:20 95 10/17/18 11:00 109/57 L 98 10/17/18 10:41 97 98 10/17/18 07:15 135/65 98 10/17/18 06:39 93 L 10/17/18 04:12 102/68 98 Weight Admit Weight 204 lb 4 oz Weight 204 lb 8 oz I&O: 10/16/18 10/17/18 10/18/18 06:59 06:59 06:59 Intake Total 650 Output Total 975 Balance -325 Result Diagrams: 10/17/18 04:24 10/17/18 04:24 Phys Exam - Physical Examination HEENT: PERRLA, moist MMs Neck: no JVD, supple Respiratory: no wheezing, no rales rhonchi+ Cardiovascular: RRR, no significant murmur Gastrointestinal: soft, non-tender, positive bowel sounds Musculoskeletal: no edema, pulses present Neurological: non-focal, moves all 4 limbs Psychiatric: normal affect, A&O x 3 Dx/Plan (1) Acute exacerbation of CHF (congestive heart failure) Code(s): I50.9 - HEART FAILURE, UNSPECIFIED Status: Acute Qualifiers: Heart failure type: diastolic Qualified Code(s): I50.33 - Acute on chronic diastolic (congestive) heart failure (2) s/p anterior cervical diskectomy Status: Acute Comment: C4-7, 10/13/2018 (3) CAD (coronary artery disease) Code(s): I25.10 - ATHSCL HEART DISEASE OF [place] CORONARY ARTERY W/O ANG PCTRS Status: Chronic Qualifiers: Coronary Disease-Associated Artery/Lesion type: bypass graft [place] vs. transplanted heart: [place] heart Associated angina: without angina Qualified Code(s): I25.810 - Atherosclerosis of coronary artery bypass graft(s) without angina pectoris (4) Dyslipidemia Code(s): E78.5 - HYPERLIPIDEMIA, UNSPECIFIED Status: Chronic (5) GERD (gastroesophageal reflux disease) Code(s): K21.9 - GASTRO-ESOPHAGEAL REFLUX DISEASE WITHOUT ESOPHAGITIS Status: Chronic (6) HTN (hypertension) Code(s): I10 - ESSENTIAL (PRIMARY) HYPERTENSION Status: Chronic Qualifiers: Hypertension type: essential hypertension Qualified Code(s): I10 - Essential (primary) hypertension (7) Obesity (BMI 30-39.9) Code(s): E66.9 - OBESITY, UNSPECIFIED Status: Chronic - Plan hemostable -: continue diuresis, start oral prednisone -: nebs prn, asp, lipitor, lopressor -: will re-evaluate this afternoon to see if she is ready to go -: or will switch her to inpt status * . Review of Systems - Medications/Allergies Allergies/Adverse Reactions: Allergies Allergy/AdvReac Type Severity Reaction Status Date / Time rosuvastatin [From Crestor] Allergy Severe Verified 10/16/18 15:09 eggplant Allergy "CAN'T Uncoded 10/10/18 10:22 BREATHE" Medications: Current Medications Acetaminophen (Tylenol) 650 mg PO Q4H PRN PRN Reason: Headache/Fever/Mild Pain (1-3) Hydrocodone Bitart/Acetaminophen (Thermal 10/325) 1 tab PO Q6H PRN PRN Reason: Pain 4-6 Last Admin: 10/17/18 13:35 Dose: 1 tab Albuterol/Ipratropium (Duoneb) 3 ml NEB [id number] [facility] Last Admin: 10/17/18 13:20 Dose: 3 ml Aspirin (Ecotrin) 81 mg PO DAILY [facility] Last Admin: 10/17/18 07:46 Dose: 81 mg Atorvastatin Calcium (Lipitor) 80 mg PO HS [facility] Last Admin: 10/16/18 21:31 Dose: 80 mg Bisacodyl (Dulcolax) 10 mg NC DAILYPRN PRN PRN Reason: Constipation Cyclobenzaprine HCl (Flexeril) 10 mg PO HS [facility] Last Admin: 10/16/18 21:33 Dose: 10 mg Enoxaparin Sodium (Lovenox) 40 mg SC 0900 [facility] Last Admin: 10/17/18 07:45 Dose: 40 mg Famotidine (Pepcid) 20 mg PO BID [facility] Last Admin: 10/17/18 07:46 Dose: Not Given Furosemide (Lasix) 40 mg SLOW IVP 0600,1400 [facility] Last Admin: 10/17/18 13:32 Dose: 40 mg Guaifenesin/Dextromethorphan (Robitussin Dm) 15 ml PO Q4H PRN PRN Reason: Cough Metoprolol Tartrate (Lopressor) 50 mg PO BID [facility] Last Admin: 10/17/18 07:45 Dose: 50 mg Senna/Docusate Sodium (Senokot S) 2 tab PO BID PRN PRN Reason: Constipation Sertraline HCl (Zoloft) 200 mg PO QAM [facility] Last Admin: 10/17/18 07:45 Dose: 200 mg Tizanidine HCl (Zanaflex) 4 mg PO QID PRN PRN Reason: Muscle Spasm Last Admin: 10/17/18 11:32 Dose: 4 mg Trazodone HCl (Desyrel) 50 mg PO [facility] Last Admin: 10/16/18 21:31 Dose: 50 mg
[2018-10-17] MEDS: Senokot S 8.6-50 MG TAB PO PRN (20:40)
[2018-10-17] MEDS: Cyclobenzaprine 10 MG TAB PO SCH (20:41)
[2018-10-17] MEDS: Atorvastatin Calcium 40 MG TAB PO SCH (20:41)
[2018-10-17] MEDS: traZODone HCl 50 MG TAB PO SCH (20:42)
[2018-10-17 22:04] LABS: Anion Gap 17 mmol/L (10-20); BUN (Urea Nitrogen) 30 mg/dL (9.8-20.1); Calc. Creatinine Clearance 78 mL/min (70-130); Calcium 9.5 mg/dL (7.8-10.44); Carbon Dioxide 28 mmol/L (23-31); Chloride 96 mmol/L (98-107); Estimated GFR-MDRD 54; Glucose 149 mg/dL (80-115); Magnesium 2.2 mg/dL (1.6-2.6); Potassium 3.3 mmol/L (3.5-5.1); Sodium 138 mmol/L (136-145)
[2018-10-18] MEDS: tiZANidine HCl 4 MG TAB PO PRN (00:07)
[2018-10-18] MEDS: HYDROcodone/Acetaminophen 10/325 mg Tablet PO PRN (05:39)
[2018-10-18] MEDS: Furosemide 40 MG/4 ML VIAL SLOW IVP SCH (05:42)
[2018-10-18 06:03] LABS: #Eosinphils 0.2 thou/uL (0.0-0.7); #Monocytes 0.8 thou/uL (0.11-0.59); #Neutrophils 6.3 thou/uL (1.40-6.50); %Basophils 0.5 % (0.0-1.0); %Eosinophils 2.4 % (0.0-10.0); %Lymphocytes 21.4 % (21.0-51.0); %Monocytes 8.5 % (0.0-10.0); %Neutrophils 67.2 % (42.0-75.0); Hemoglobin 12.1 g/dL (12.0-16.0); Mean Corpuscular Hemoglobin 30.4 pg (27.0-31.0); Mean Corpuscular Volume 94.8 fL (78.0-98.0); Mean Platelet Volume 7.9 fL (7.4-10.4); Platelet Count 231 thou/uL (130-400); RBC Distribution Width 14.9 % (11.5-14.5); White Blood Cell (WBC) Count 9.3 thou/uL (4.8-10.8)
[2018-10-18 06:24] LABS: Anion Gap 13 mmol/L (10-20); BUN (Urea Nitrogen) 26 mg/dL (9.8-20.1); Calc. Creatinine Clearance 98 mL/min (70-130); Calcium 9.7 mg/dL (7.8-10.44); Carbon Dioxide 29 mmol/L (23-31); Chloride 99 mmol/L (98-107); Estimated GFR-MDRD 70; Glucose 101 mg/dL (80-115); Magnesium 1.9 mg/dL (1.6-2.6); Potassium 3.4 mmol/L (3.5-5.1); Sodium 138 mmol/L (136-145)
[2018-10-18] MEDS ORDERED: predniSONE 20 MG TAB PO SCH (07:15)
[2018-10-18] MEDS ORDERED: Lisinopril/Hydrochlorothiazide 20 mg/12.5 mg Tablet PO SCH (09:00)
[2018-10-18] MEDS: Aspirin 81 mg Enteric Coated Tablet PO SCH (09:08)
[2018-10-18] MEDS: Famotidine 20 MG TAB PO SCH (09:08)
[2018-10-18] MEDS: Metoprolol Tartrate 50 MG TAB PO SCH (09:09)
[2018-10-18] MEDS: Enoxaparin Sodium 40 MG/0.4 ML SYRINGE SC SCH (09:09)
[2018-10-18] MEDS: Senokot S 8.6-50 MG TAB PO PRN (09:10)
--- NOTE | 2018-10-18 12:16 | EKG ---
Test Reason : Blood Pressure : / mmHG Vent. Rate : 088 BPM Atrial Rate : 088 BPM P-R Int : 132 ms QRS Dur : 080 ms QT Int : 392 ms P-R-T Axes : 067 056 117 degrees QTc Int : 474 ms Normal sinus rhythm Possible Left atrial enlargement Nonspecific ST and T wave abnormality Prolonged QT Abnormal ECG Confirmed by ORI JEFFREY ([id number]), film and video editor FANNY WESLEY ([id number]) on 10/18/2018 12:15:39 PM Referred By: Confirmed By:ORI JEFFREY
[2018-10-18 12:44] VITALS: BP 125/62; TEMP 97.8
--- NOTE | 2018-10-18 17:22 | DIS ---
DATE OF ADMISSION: 10/16/2018 DATE OF DISCHARGE: 10/18/2018 DISCHARGE DISPOSITION: To home. PRIMARY DISCHARGE DIAGNOSES: Mild congestive heart failure exacerbation, likely diastolic, awaiting echo report. Hoarseness with difficulty swallowing secondary to recent anterior cervical diskectomy of C4-C7 done on 10/13/2018. SECONDARY DISCHARGE DIAGNOSES: Coronary artery disease, hypertension, obesity, dyslipidemia, gastroesophageal reflux disease. PROCEDURES DONE DURING HOSPITALIZATION: CT neck soft tissue with contrast done on the day of admission showed findings of recent cervical fusion involving C4 through C7 with associated soft tissue edema. There is small residual postsurgical air collections in the soft tissues, possible prevertebral collection/hematoma in the C3 through C5 region, greater on the right than left. Airway was patent, although there was some compression of the upper esophagus. CT angio chest with contrast done showed no evidence of PE. No alveolar infiltrate was seen. 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 Please note, echo with 2D Doppler result is currently pending. H and H 12 and 37, platelet count 231, MCV is 94, white count of 9. BNP was 1121. TSH was 0.3. BUN 26, creatinine 0.8, albumin was 3.5. Liver enzymes were within normal limits. INPATIENT CONSULT: RENETTA Dasilva, Neurosurgery for [facility]. DISCHARGE MEDICATIONS: 1. Metoprolol tartrate 50 mg twice daily. 2. Prednisone 20 mg daily for 2 days for tomorrow and day after. 3. Prinzide 20/12.5 mg one tablet daily. 4. Atorvastatin 80 mg p.o. at bedtime. 5. DuoNeb q.6 hourly. 6. Trazodone 50 mg p.o. at bedtime. 7. Zanaflex p.r.n. 8. Sertraline 200 mg p.o. q.a.m. 9. Protonix 40 mg p.o. daily. 10. Motrin p.r.n. for pain. 11. Presto p.r.n. for pain. 12. Flexeril 10 mg p.o. at bedtime. ALLERGIES: TO ROSUVASTATIN AND EGGPLANT. DISCHARGE PLAN: The patient to follow up with primary care physician in 1 week. She also needs to follow up with Dr. Mcgovern in 3 to [address] Ho as advised. BRIEF COURSE DURING HOSPITALIZATION: The patient initially came to ER with complaints of having trouble swallowing and worsening shortness of breath. She has had recent anterior cervical diskectomy done on the by Dr. Ho. In view of this history and elevated BNP, the patient was placed under observation on telemetry. She has had gentle diuresis done and was also placed on steroids for the inflammation in the neck area post anterior cervical diskectomy. She was also on nebulizations. Prior to discharge, she is tolerating solid diet. She states she can eat solids better than liquids. She was given Decadron during her stay here. She needs to continue prednisone at 20 mg for tomorrow and day after and stop it. The patient was also given a prescription for nebulizer along with DuoNeb scripts for q.6 hourly for the next 5 to 6 days until her swallowing and breathing gets better with post surgery inflammation in the neck area. Prior to discharge, she is ambulating and eating well. Please note, an echo with 2D Doppler has been done and the official results are pending at present. She needs to follow up with Dr. Mcgovern that is her international project engineer. Please note, I have seen and examined the patient on the day of discharge. Job ID: [id number] MTDD
== END 2018-10-18 13:12 | disposition home health service (06) ==
LOC: ERS 00:42 → INTOOBSV 04:18 → ERHOLD 04:18 → 2SW 15:12
PROVIDERS: ADMIT Family Medicine; ATTEND Family Medicine
DX: I11.0 Hypertensive heart disease with heart failure (principal); I50.33 Acute on chronic diastolic (congestive) heart failure; I25.10 Atherosclerotic heart disease of native coronary artery without angina pectoris; E78.5 Hyperlipidemia, unspecified; F17.210 Nicotine dependence, cigarettes, uncomplicated; G89.29 Other chronic pain; M54.2 Cervicalgia; R13.19 Other dysphagia; E66.9 Obesity, unspecified; Z68.37 Body mass index [BMI] 37.0-37.9, adult; Z79.899 Other long term (current) drug therapy; Z88.8 Allergy status to other drugs, medicaments and biological substances; Z91.018 Allergy to other foods; Z95.1 Presence of aortocoronary bypass graft; Z95.5 Presence of coronary angioplasty implant and graft; Z98.1 Arthrodesis status; Z98.890 Other specified postprocedural states
CPT/HCPCS: 70491; 71275; 80048 ×3; 80053; 83735 ×2; 83880; 84443; 84484; 85025 ×3; 93005; 93306; 93798 ×2; 94640 ×3; 96372 ×2; 96374; 96375; 96376 ×3; 97139; 99285; G0378 ×3; 36415; J1100; J1650; J1940; J2270; J7512; J7620; Q9966

== ENCOUNTER 2018-10-30 11:09 | Outpatient (CLI) | payer MEDICARE ==
--- NOTE | 2018-10-30 11:28 | RAD ---
EXAM: 3 views of the cervical spine HISTORY: Cervical radiculopathy COMPARISON: 05/06/2018 FINDINGS: AP, lateral, and open mouth odontoid views of the cervical spine shows normal height and al ignment of the vertebral bodies and intervertebral discs without fracture or subluxation. The patient is status post anterior fusion of C4-C7 with a plate and screws. Intervening disc spacers are seen in the disc spaces. No perihardware lucency is seen. No prevertebral soft tissue swelling is seen. IMPRESSION: Postsurgical changes of the lower cervical spine without evidence of complication.
== END 2018-10-30 11:10 | disposition home or self-care (01) ==
LOC: TBSIIMAG 11:09
PROVIDERS: ATTEND Neurological Surgery
DX: M54.12 Radiculopathy, cervical region (principal); Z98.890 Other specified postprocedural states
CPT/HCPCS: 72040

== ENCOUNTER 2018-12-17 14:45 | Outpatient (CLI) | payer MEDICARE ==
--- NOTE | 2018-12-17 15:57 | RAD ---
CERVICAL SPINE 4 VIEWS: Date: 12/17/18 HISTORY: Cervical disc disease. Postop follow-up. COMPARISON: 10/30/18. FINDINGS: The anterior plate and screws are again noted transfixing C4, C5, C6, and C7. The plate does not adhe re to the anterior cortex of C4, but the position is stable from the prior exam. Interbody implants a re unchanged in position. Posterior alignment remains stable. IMPRESSION: Stable postop changes. POS: OFF
== END 2018-12-17 14:46 | disposition home or self-care (01) ==
LOC: TBSIIMAG 14:45
PROVIDERS: ATTEND Neurological Surgery
DX: M50.30 Other cervical disc degeneration, unspecified cervical region (principal); Z98.890 Other specified postprocedural states
CPT/HCPCS: 72040

== ENCOUNTER 2018-12-26 12:59 | Outpatient (CLI) | payer MEDICARE ==
--- NOTE | 2018-12-26 15:10 | MRI ---
MRI OF THE THORACIC SPINE WITHOUT CONTRAST: INDICATION: History of mid back pain without a history of injury or surgery. COMPARISON: Cervical spinal radiographs dated 12/17/2018 and 10/30/2018. FINDINGS: No acute fracture is evident. Spinal alignment is preserved. There is some high T2 signal seen invo lving the C7 and C6 vertebral levels that is partially imaged on the STIR images likely related to bro sceptibility artifact from an ACDF seen spanning C4 through C7 on the comparison radiographs. At T1-T2, there is no appreciable central canal or neural foraminal narrowing. At T2-T3, there is no appreciable central canal or neural foraminal narrowing. At T3-T4, there is no appreciable central canal or neural foraminal narrowing. At T4-T5, there is no appreciable central canal or neural foraminal narrowing. At T5-T6, there is no appreciable central canal or neural foraminal narrowing. At T6-T7, there is no appreciable central canal or neural foraminal narrowing. At T7-T8, there is no appreciable central canal or neural foraminal narrowing. At T8-T9, there is no appreciable central canal or neural foraminal narrowing. At T9-T10, there is no appreciable central canal or neural foraminal narrowing. At T10-T11, there is a broad-based bulge with facet hypertrophy inducing mild central canal narrowing without cord compression. There is mild bilateral neural foraminal narrowing. T11-T12, there is a mild broad-based bulge with mild to moderate facet joint degenerative change tunde cing mild central canal narrowing and mild neural foraminal encroachment. At T12-L1, there is no appreciable central canal or neural foraminal narrowing. IMPRESSION: 1. Mild spondylosis of the thoracic spine most pronounced at T10-, T11, and T11-T12. 2. No acute fracture demonstrated. POS: OFF
== END 2018-12-26 13:00 | disposition home or self-care (01) ==
LOC: TBSIIMAG 12:59
PROVIDERS: ATTEND Neurological Surgery
DX: M54.6 Pain in thoracic spine (principal); M47.814 Spondylosis without myelopathy or radiculopathy, thoracic region
CPT/HCPCS: 72146

== ENCOUNTER 2022-08-15 15:02 | Outpatient (CLI) | payer MEDICARE ==
[2022-08-15 17:45] LABS: #Basophils 0.1 10x3/uL (0.0-0.2); #Eosinphils 0.2 10x3/uL (0.0-0.5); #Monocytes 0.8 10x3/uL (0.0-1.1); #Neutrophils 5.7 10x3/uL (1.5-8.4); %Basophils 0.8 % (0.0-2.0); %Eosinophils 2.1 % (0.0-6.0); %Lymphocytes 23.4 % (18.0-47.0); %Monocytes 9.4 % (0.0-10.0); Hemoglobin 13.9 g/dL (12.0-15.5); Mean Corpuscular HGB CONC 33.1 g/dL (32.0-36.0); Mean Corpuscular Hemoglobin 32.7 pg (27.0-33.0); Mean Corpuscular Volume 98.8 fl (81.6-98.3); Mean Platelet Volume 10.2 fl (7.4-10.4); Platelet Count 236 10x3/uL (150-450); RBC Distribution Width 14.4 % (11.5-14.5); Red Blood Cell (RBC) Count 4.25 10x6/uL (3.90-5.03); White Blood Cell (WBC) Count 8.9 10x3/uL (3.5-10.5)
[2022-08-15 17:52] LABS: ALT (SGPT) 11 U/L (8-55); AST (SGOT) 18 U/L (5-34); Alkaline Phosphatase 80 U/L (40-110); Anion Gap 16 mmol/L (10-20); BUN (Urea Nitrogen) 28 mg/dL (9.8-20.1); Bilirubin, Total 0.4 mg/dL (0.2-1.2); Calc. Creatinine Clearance 0 mL/min (70-130); Calcium 9.6 mg/dL (7.8-10.44); Carbon Dioxide 25 mmol/L (23-31); Chloride 103 mmol/L (98-107); Estimated GFR 54; Globulin 3.3 g/dL (2.4-3.5); Glucose 99 mg/dL (83-110); Potassium 3.9 mmol/L (3.5-5.1); Protein, Total 7.3 g/dL (5.8-8.1); Sodium 140 mmol/L (136-145)
== END 2022-08-15 15:03 | disposition home or self-care (01) ==
LOC: LABBT 15:02
PROVIDERS: ATTEND Internal Medicine Cardiovascular Disease
DX: Z01.812 Encounter for preprocedural laboratory examination (principal); I44.7 Left bundle-branch block, unspecified; R94.39 Abnormal result of other cardiovascular function study
CPT/HCPCS: 80053; 85025

== ENCOUNTER 2022-08-21 06:06 | Day surgery (SDC) | payer MEDICARE ==
[2022-08-20 10:42] VITALS: BMI 32.3
[2022-08-21] MEDS ORDERED: fentaNYL 50 mcg/mL 1 mL Vial ONE ×2 (06:10→08:40)
[2022-08-21] MEDS ORDERED: Heparin 10,000 UNITS/ 10 ML VIAL ONE (06:11)
[2022-08-21] MEDS ORDERED: Midazolam HCl 2 mg/2 ml Vial ONE (06:11)
[2022-08-21] MEDS ORDERED: Lidocaine 1% (PF) 30 ML VIAL ONE (06:11)
[2022-08-21 07:16] LABS: Cardiac Risk 3.4 (Less than 4.5)
[2022-08-21] MEDS ORDERED: Adenosine 6 MG/2 ML VIAL ONE (07:42)
[2022-08-21] MEDS ORDERED: Clopidogrel Bisulfate 300 MG TAB ONE ×2 (08:19→08:20)
[2022-08-21] MEDS ORDERED: Bivalirudin 250 MG VIAL ONE (08:19)
[2022-08-21] MEDS ORDERED: Ondansetron PF 4 MG/2 ML Vial ONE (08:57)
[2022-08-21] MEDS ORDERED: Cyclobenzaprine 10 MG TAB ONE (09:24)
[2022-08-21] MEDS ORDERED: Morphine 4 MG/ML VIAL ONE (09:26)
[2022-08-21] MEDS ORDERED: Cyclobenzaprine 10 MG TAB PO SCH (09:30)
[2022-08-21] MEDS ORDERED: Morphine 2 MG/ML VIAL ONE (17:46)
== END 2022-08-21 21:40 | disposition home or self-care (01) ==
LOC: SDC 06:06
PROVIDERS: ATTEND Internal Medicine Cardiovascular Disease
PROC: 027034Z Dilation of Coronary Artery, One Artery with Drug-eluting Intraluminal Device, Percutaneous Approach (ICD-10-PCS; principal; 2022-08-21)
PROC: 4A023N7 Measurement of Cardiac Sampling and Pressure, Left Heart, Percutaneous Approach (ICD-10-PCS; 2022-08-21)
PROC: B2111ZZ Fluoroscopy of Multiple Coronary Arteries using Low Osmolar Contrast (ICD-10-PCS; 2022-08-21)
PROC: B2171ZZ Fluoroscopy of Right Internal Mammary Bypass Graft using Low Osmolar Contrast (ICD-10-PCS; 2022-08-21)
DX: I25.10 Atherosclerotic heart disease of native coronary artery without angina pectoris (principal); I35.1 Nonrheumatic aortic (valve) insufficiency; I11.0 Hypertensive heart disease with heart failure; I50.32 Chronic diastolic (congestive) heart failure; E78.00 Pure hypercholesterolemia, unspecified; F17.210 Nicotine dependence, cigarettes, uncomplicated; I44.7 Left bundle-branch block, unspecified; Z79.82 Long term (current) use of aspirin; Z79.899 Other long term (current) drug therapy; Z88.8 Allergy status to other drugs, medicaments and biological substances; Z91.018 Allergy to other foods; Z95.1 Presence of aortocoronary bypass graft; Z95.5 Presence of coronary angioplasty implant and graft
CPT/HCPCS: 80061; 85347 ×2; 93005; J0583; J3010; 92928; 93459; 93571; 99152; 99153; C1725; C1769; C1874; C9600; J0153; J1644; J2001; J2250; J2270; J2272; J2405